=== PATIENT | female | born 1985 | race Hispanic/Latino ===

== ENCOUNTER 2016-10-08 14:58 | Emergency (ER) | payer MEDICAID ==
[2016-10-08 16:02] LABS: Basophils % (Auto) 0.6 % (0.0-1.8); Eosinophils % (Auto) 2.5 % (0.0-4.3); Hematocrit 33.3 % (30.3-42.9); Hemoglobin 10.6 gm/dl (10.1-14.3); Mean Corpuscular HGB Conc 32 % (30-34); Mean Corpuscular Volume 79 fl (79-97); Platelet Count 211 K/mm3 (140-440); Red Cell Distribution Width 17.3 % (13.2-15.2); White Blood Count 8.4 K/mm3 (4.5-11.0)
[2016-10-08 16:04] LABS: Mean Corpuscular Hemoglobin 25 pg (28-32)
[2016-10-08 16:22] LABS: Alanine Aminotransferase 8 units/L (7-56); Albumin 3.7 g/dL (3.9-5); Albumin/Globulin Ratio 0.9 %; Alkaline Phosphatase 109 units/L (35-129); Anion Gap 18 mmol/L; BUN/Creatinine Ratio 8.57; Bilirubin,Total < 0.20 mg/dL (0.1-1.2); Blood Urea Nitrogen 6 mg/dL (7-17); Carbon Dioxide 20 mmol/L (22-30); Chloride 105.2 mmol/L (98-107); Glucose 91 mg/dL (65-100); Lipase 17 units/L (13-60); Potassium 3.9 mmol/L (3.6-5.0); Sodium 139 mmol/L (137-145); Total Protein 7.7 g/dL (6.3-8.2)
[2016-10-08 16:32] LABS: Bilirubin,Urine NEG (Negative); Blood,Urine NEG (Negative); Ketones,Urine NEG (Negative); Leukocyte Esterase,Urine TR (Negative); Mucus,Urine FEW /HPF; Nitrite,Urine NEG (Negative); Protein,Urine <15 mg/dL mg/dL (Negative); Urobilinogen,Urine < 2.0 mg/dL (<2.0)
[2016-10-08] MEDS ORDERED: SUBLIMAZE IV ONE (21:29)
[2016-10-08] MEDS ORDERED: ZOFRAN IV ONE (21:29)
[2016-10-08] MEDS ORDERED: NACL ONE (21:40)
--- NOTE | 2016-10-08 21:40 | Emergency Department Report ---
HPI - General Chief Complaint: Abdominal Pain Time Seen by Provider: 10/08/16 21:06 - HPI HPI: Room 7 The patient is a 30-year-old female presenting with a chief complaint right- sided abdominal pain. The patient states she has had pain in the right upper quadrant/right costal margin for the past 2 days is constant and sharp in nature. Patient does admit to occasional pleuritic component which caused the pain radiated to her right back. Patient does admit to nausea vomiting but denies diarrhea. Patient denies any history of fever. The patient states she has a history of factor V Leiden and is not currently on anticoagulation. The patient currently gives her pain a score of 9/10 Location: [see above] Duration: 2 days Quality: Sharp Severity:9/10 Modifying factors: Inspiration causes pain to radiate Context: [see above] Mode of transportation: [not driving] ED Past Medical Hx - Past Medical History Hx CVA: Yes (x5) Hx Psychiatric Treatment: Yes (BIPOLAR / SCHIZOPHRENIA / PTSD) Hx Asthma: Yes Additional medical history: FACTOR 5 - Surgical History Hx Cholecystectomy: Yes Additional Surgical History: X 2. TUBAL LIGATION - Family History Family history: no significant - Social History Smoking Status: Current Every Day Smoker (1/2 pack per day) Substance Use Type: None (denies illicit drug use) - Medications Home Medications: Home Medications Medication Instructions Recorded Confirmed Last Taken Type Aspirin [Aspirin TAB] 325 mg PO ONCE 08/21/14 08/21/14 08/21/14 History Ibuprofen [Motrin 800 MG tab] 800 mg PO Q8H PRN #30 tablet 09/03/14 Unknown Rx Meclizine [Antivert] 25 mg PO TID PRN #20 tablet 09/03/14 Unknown Rx Ondansetron [Zofran Odt] 4 mg PO Q6H PRN #20 tab.rapdis 09/03/14 Unknown Rx oxyCODONE /ACETAMINOPHEN [Percocet 1 tab PO Q6HR PRN #10 tablet 09/03/14 Unknown Rx 5/325] Azithromycin [Zithromax Z-ELOISE] 0 mg PO DAILY #6 tab 10/08/16 Unknown Rx HYDROcodone/APAP 5-325 [[place] 1 - 2 each PO Q6HR PRN #14 tablet 10/08/16 Unknown Rx 5/325] Ibuprofen [Motrin 800 MG tab] 800 mg PO Q8HR PRN #20 tablet 10/08/16 Unknown Rx ED Review of Systems ROS: Stated complaint: RT SIDE PAIN Other details as noted in HPI Comment: All other systems reviewed and negative Constitutional: denies: chills, fever Eyes: denies: eye pain, eye discharge, vision change ENT: denies: ear pain, throat pain Respiratory: denies: cough, shortness of breath, wheezing Cardiovascular: denies: chest pain, palpitations Endocrine: no symptoms reported Gastrointestinal: abdominal pain, nausea, vomiting Genitourinary: denies: urgency, dysuria, discharge Musculoskeletal: back pain Skin: denies: rash, lesions Neurological: denies: headache, weakness, paresthesias Psychiatric: denies: anxiety, depression Hematological/Lymphatic: denies: easy bleeding, easy bruising Physical Exam - Physical Exam Vital Signs: Vital Signs 10/08/16 15:34 Temperature 98.7 F Pulse Rate 98 H Respiratory 18 Rate Blood Pressure 127/74 O2 Sat by Pulse 99 Oximetry Physical Exam: GENERAL: The patient is well-developed well-nourished female looking older than stated age sitting on stretcher not appearing to be in acute distress. [] HEENT: Normocephalic. Atraumatic. Extraocular motions are intact. Patient has moist mucous membranes. NECK: Supple. Trachea midline CHEST/LUNGS: Clear to auscultation. There is no respiratory distress noted. HEART/CARDIOVASCULAR: Regular. There is no tachycardia. There is no gallop rub or murmur. ABDOMEN: Abdomen is soft, with tenderness to palpation in the right upper quadrant. Elsewhere the abdomen is soft and nontender. There is no rebound or guarding. Patient has normal bowel sounds. There is no abdominal distention. SKIN: There is no rash. There is no edema. There is no diaphoresis. NEURO: The patient is awake, alert, and oriented. The patient is cooperative. The patient has normal speech MUSCULOSKELETAL: There is no mild right CVA tenderness. There is no evidence of acute injury. ED Course Vital Signs 10/08/16 15:34 Temperature 98.7 F Pulse Rate 98 H Respiratory 18 Rate Blood Pressure 127/74 O2 Sat by Pulse 99 Oximetry ED Medical Decision Making - Lab Data Result diagrams: 10/08/16 15:50 10/08/16 15:50 Laboratory Tests 0610/08/16 10/08/16 15:50 15:50 15:50 WBC 8.4 RBC 4.20 Hgb 10.6 Hct 33.3 MCV 79 MCH 25 L MCHC 32 RDW 17.3 H Plt Count 211 Lymph % (Auto) 26.7 [place] % (Auto) 9.4 H Eos % (Auto) 2.5 Baso % (Auto) 0.6 Lymph # 2.3 [place] # 0.8 Eos # 0.2 Baso # 0.0 Seg Neutrophils % 60.8 Seg Neutrophils # 5.1 Sodium 139 Potassium 3.9 Chloride 105.2 Carbon Dioxide 20 L Anion Gap 18 BUN 6 L Creatinine 0.7 Estimated GFR > 60 BUN/Creatinine Ratio 8.57 Glucose 91 Calcium 9.0 Total Bilirubin < 0.20 AST 10 ALT 8 Alkaline Phosphatase 109 Total Protein 7.7 Albumin 3.7 L Albumin/Globulin Ratio 0.9 Lipase 17 HCG, Qual Negative Urine Color Urine Turbidity Urine pH Ur Specific [place] Urine Protein Urine Glucose (UA) Urine Ketones Urine Blood Urine Nitrite Urine Bilirubin Urine Urobilinogen Ur Leukocyte Esterase Urine WBC (Auto) Urine RBC (Auto) U Epithel Cells (Auto) Urine Mucus 10/08/16 16:10 WBC RBC Hgb Hct MCV MCH MCHC RDW Plt Count Lymph % (Auto) [place] % (Auto) Eos % (Auto) Baso % (Auto) Lymph # [place] # Eos # Baso # Seg Neutrophils % Seg Neutrophils # Sodium Potassium Chloride Carbon Dioxide Anion Gap BUN Creatinine Estimated GFR BUN/Creatinine Ratio Glucose Calcium Total Bilirubin AST ALT Alkaline Phosphatase Total Protein Albumin Albumin/Globulin Ratio Lipase HCG, Qual Urine Color Yellow Urine Turbidity Clear Urine pH 6.0 Ur Specific [place] 1.010 Urine Protein <15 mg/dl Urine Glucose (UA) Neg Urine Ketones Neg Urine Blood Neg Urine Nitrite Neg Urine Bilirubin Neg Urine Urobilinogen < 2.0 Ur Leukocyte Esterase Tr Urine WBC (Auto) 3.0 Urine RBC (Auto) 3.0 U Epithel Cells (Auto) < 1.0 Urine Mucus Few - Radiology Data Radiology results: report reviewed (CT abdomen and pelvis, CT chest), image reviewed (CT abdomen and pelvis, CT chest) CT chest (read by radiologist)-no evidence of pulmonary loose. Nonspecific groundglass densities are seen in both lungs. No dense consolidations are seen. I cannot exclude an interstitial infiltrates or atelectasis. Line CT abdomen and pelvis (read by radiologist) (-no acute intra-abdominal process. Normal appendix - Differential Diagnosis PE, renal colic, pyelonephritis Critical care attestation.: If time is entered above; I have spent that time in minutes in the direct care of this critically ill patient, excluding procedure time. ED Disposition Clinical Impression: Pleurisy, Acute bronchitis Disposition: TO HOME OR SELFCARE Is pt being admited?: No Does the pt Need Aspirin: No Condition: Stable Instructions: Abdominal Pain (ED), Acute Bronchitis (ED) Additional Instructions: Return to the emergency department immediately should you develop worsening symptoms, fever, inability to tolerate food or liquid or any other concerns. Prescriptions: Azithromycin [Zithromax Z-ELOISE] 0 mg PO DAILY #6 tab HYDROcodone/APAP 5-325 [[place] 5/325] 1 - 2 each PO Q6HR PRN #14 tablet PRN Reason: Pain Ibuprofen [Motrin 800 MG tab] 800 mg PO Q8HR PRN #20 tablet PRN Reason: Pain Referrals: PRIMARY CAREMD [Primary Care Provider] - 3-5 Days ISHA PATEL MD, PHD [Staff Physician] - 3-5 Days (Dr. Patel is a primary physician. Please follow up with him if you do not already have a primary doctor) RADHA WILKERSON MD [Staff Physician] - 3-5 Days (Dr. Wilkerson is a telephone recorder. Please follow up with him for further evaluation) Time of Disposition: 23:16
--- NOTE | 2016-10-08 22:52 | Cat Scan Report ---
FINAL REPORT PROCEDURE: CT ANGIO CHEST and contrast-enhanced CT scan abdomen and pelvis TECHNIQUE: Computerized tomographic angiography of the chest was performed during the IV injection of iodinated nonionic contrast including image processing. The image data was postprocessed using 2-dimensional multiplanar reformatted (MPR) and 3-dimensional (MIP and/or volume rendered) techniques. Additional contrast-enhanced CT scan of the abdomen and pelvis was obtained during the injection of IV contrast. HISTORY: right costal pain with pleurisy. Factor V Leiden. Evaluate pulmonary embolus COMPARISON: No prior studies are available for comparison. FINDINGS: Pulmonary outflow tract, right and left main pulmonary arteries and their proximal branches: Clear, no filling defects seen to suggest pulmonary embolus. Pericardium: No evidence of pericardial effusion. Thoracic aorta: No evidence of aneurysmal dilatation or dissection. Coronary arteries: Are unremarkable. Mediastinum and hilar regions: Nonspecific subcentimeter lymph nodes are visualized. No pathologically enlarged lymph nodes or masses are identified. There is a small amount of soft tissue dense material in the anterior mediastinum conforming to the contours of the anterior mediastinum suggesting residual thymic tissue. Lung Smalls: Nonspecific ground-glass densities scattered in both lungs. There are few linear bands of atelectasis in the lung bases and also in the right middle lobe. No dense consolidations or effusions are seen. Upper abdomen: The gallbladder is surgically absent. The liver, the adrenal glands, the pancreas and the spleen are unremarkable. Kidneys ureters and urinary bladder are unremarkable. Abdominal aorta appears normal. No evidence of aneurysm. Nonspecific subcentimeter lymph nodes are scattered in the retroperitoneum. These do not appear to be pathologically enlarged. No bowel abnormalities are seen. No evidence of bowel obstruction ascites or free intraperitoneal gas. Normal-appearing appendix is seen in the right lower quadrant. Gas densities seen in the vagina. A tampon appears to be present. Uterus and adnexa are unremarkable. No acute bony abnormalities are identified. There is an asymmetric disc protrusion or herniation to the left at L5-S1. This appears to be resting on and minimally compressing the left S1 nerve root. Degenerative changes visualized in both SI joints. IMPRESSION: No evidence of pulmonary embolus. Nonspecific ground-glass densities are seen in both lungs as described. No dense consolidations are seen. I cannot exclude an interstitial infiltrate or atelectasis. Prior cholecystectomy. Asymmetric disc protrusion or herniation to the left at the L5-S1 level as described above.
--- NOTE | 2016-10-08 22:56 | Cat Scan Report ---
FINAL REPORT EXAM: CT ABDOMEN PELVIS W CON HISTORY: sharp right-sided abd pain radiating to back TECHNIQUE: CT images are acquired through the Abdomen and Pelvis arterial and delayed venous phases following intravenous administration of contrast. Transaxial, coronal and sagittal reformations are provided. PRIORS: None FINDINGS: Partially visualized intrathoracic contents are remarkable for bibasilar atelectasis. Please see CT chest of the same date. Cholecystectomy. The liver, pancreas, spleen, and adrenal glands are normal. Kidneys show no worrisome lesions, hydronephrosis, or calculi. Urinary bladder is without intraluminal stone. Small and large bowel are normal in caliber. Appendix is normal. No free air, free fluid, or lymphadenopathy identified. Aorta is normal in course and caliber. Anteverted uterus. No significant free fluid in the pelvis. Vaginal tampon is noted. Superficial soft tissues are unremarkable. No acute or aggressive appearing skeletal findings. Osteitis condensans ilii. IMPRESSION: No acute intra-abdominal process. Normal appendix.
[2016-10-08 23:46] VITALS: BP 110/72
== END 2016-10-08 23:46 | disposition home or self-care (01) ==
LOC: ED 14:58
DX: R09.1 Pleurisy (principal); J20.9 Acute bronchitis, unspecified; F31.9 Bipolar disorder, unspecified; F20.9 Schizophrenia, unspecified; F17.200 Nicotine dependence, unspecified, uncomplicated
CPT/HCPCS: 36415; 71275; 74177; 80053; 81001; 83690; 84703; 85025; 96374; 96375; 99284; J2405; J3010; Q9967

== ENCOUNTER 2017-07-15 11:27 | Emergency (ER) | payer MEDICAID ==
[2017-07-15 15:48] VITALS: BP 117/67
[2017-07-15] MEDS ORDERED: NORCO 5/325 PO ONE (16:10)
--- NOTE | 2017-07-15 16:13 | Emergency Department Report ---
Blank Doc - Documentation Documentation: Patient is a 31-year-old female who is presenting with left calf pain. Patient has factor V Leiden syndrome and is supposed to be on Lovenox but is not taking this medication. Patient states the pain has been present for 2 days. Patient also states in her inner left thigh she has some areas of redness that she believes a small staph infection. X Patient will undergo ultrasound of the leg to rule out DVT.
== END 2017-07-15 20:34 | disposition left against medical advice (07) ==
LOC: ED 11:27
DX: M79.605 Pain in left leg (principal)

== ENCOUNTER 2017-08-10 16:18 | Inpatient (IN) | payer MEDICAID ==
--- NOTE | 2017-08-10 17:57 | Emergency Department Report ---
HPI - General Chief Complaint: Altered Mental Status Time Seen by Provider: 08/10/17 17:41 - HPI HPI: Room 4 The patient is a 31-year-old female presenting with chief complaint of memory loss and right-sided numbness. The patient was brought in by EMS. The patient states she does not remember why EMS was called initially. EMS stated the patient began complaining of not feeling well, right arm numbness and recent short-term memory loss. During the interview the patient was asked what is bothering her and she required she has a headache and feels "full headed." Upon further probing the patient admitted to right hand and right forearm numbness. The patient has a history of leukemia and receives chemotherapy but states she does not remember the last time she received it Location: [See above] Duration: Unknown Quality: Headache, numbness Severity: Moderate Modifying factors: [see above] Context: [see above] Mode of transportation: [not driving] ED Past Medical Hx - Past Medical History Hx CVA: Yes (x5) Hx of Cancer: Yes (LEUKEMIA 2018) Hx Psychiatric Treatment: Yes (BIPOLAR / SCHIZOPHRENIA / PTSD) Hx Asthma: Yes Additional medical history: Factor V Leiden, Leukemia, DVT - Surgical History Hx Cholecystectomy: Yes Additional Surgical History: X 2. TUBAL LIGATION - Family History Family history: no significant - Social History Smoking Status: Current Every Day Smoker (1/2 pack per day) Substance Use Type: None (denies illicit drug use) - Medications Home Medications: Home Medications Medication Instructions Recorded Confirmed Last Taken Type FLUoxetine HCL [PROzac] 40 mg PO QAM 08/10/17 08/10/17 Unknown History Perphenazine [Trilafon] 16 mg PO DAILY@209908/10/17 08/10/17 Unknown History Topiramate [Topamax] 200 mg PO QAM 08/10/17 08/10/17 Unknown History Trazodone HCl 300 mg PO DAILY@209908/10/17 08/10/17 Unknown History Warfarin [Coumadin] 5 mg PO DAILY@169908/10/17 08/10/17 Unknown History ED Review of Systems ROS: Stated complaint: MEMORY LOSS Other details as noted in HPI Neurological: headache, numbness, other (memory loss) Physical Exam - Physical Exam Vital Signs: Vital Signs 08/10/17 16:20 Temperature 98.0 F Pulse Rate 71 Blood Pressure 117/72 O2 Sat by Pulse 98 Oximetry Physical Exam: GENERAL: The patient is well-developed well-nourished female sitting on stretcher not appearing to be in acute distress. [] HEENT: Normocephalic. Atraumatic. Extraocular motions are intact. Patient has moist mucous membranes. NECK: Supple. Trachea midline CHEST/LUNGS: Clear to auscultation. There is no respiratory distress noted. HEART/CARDIOVASCULAR: Regular. There is no tachycardia. There is no gallop rub or murmur. ABDOMEN: Abdomen is soft, nontender. Patient has normal bowel sounds. There is no abdominal distention. SKIN: There is no rash. There is no edema. There is no diaphoresis. NEURO: The patient is awake, alert, and oriented. The patient is cooperative. Cranial nerves II through XII grossly intact with exception of decreased sensation of the right V1 and V2 distribution. The patient has normal speech. No drift. Slightly decreased sensation to the right hand and forearm. Normal sensation bilateral lower extremities MUSCULOSKELETAL: There is no evidence of acute injury. ED Course Vital Signs 08/10/17 16:20 Temperature 98.0 F Pulse Rate 71 Blood Pressure 117/72 O2 Sat by Pulse 98 Oximetry ED Medical Decision Making - Lab Data Result diagrams: 08/10/17 17:42 08/10/17 17:42 Laboratory Tests 08/10/17 08/10/17 08/10/17 17:42 17:42 17:46 WBC 5.9 RBC 4.27 Hgb 7.2 L Hct 25.7 L MCV 60 L MCH 17 L MCHC 28 L RDW 19.1 H Plt Count 219 Lymph % (Auto) 29.5 [place] % (Auto) 8.8 H Eos % (Auto) 1.3 Baso % (Auto) 0.6 Lymph # 1.7 [place] # 0.5 Eos # 0.1 Baso # 0.0 Seg Neutrophils % 59.8 Seg Neutrophils # 3.5 PT 14.4 INR 1.06 APTT 26.3 Sodium 140 Potassium 4.0 Chloride 101.4 Carbon Dioxide 26 Anion Gap 17 BUN 5 L Creatinine 0.6 L Estimated GFR > 60 BUN/Creatinine Ratio 8 Glucose 93 Calcium 8.8 Total Bilirubin Direct Bilirubin Indirect Bilirubin AST ALT Alkaline Phosphatase Total Creatine Kinase CK-MB (CK-2) CK-MB (CK-2) Rel Index Troponin T Total Protein Albumin Albumin/Globulin Ratio TSH Free T4 08/10/17 08/10/17 17:46 17:46 WBC RBC Hgb Hct MCV MCH MCHC RDW Plt Count Lymph % (Auto) [place] % (Auto) Eos % (Auto) Baso % (Auto) Lymph # [place] # Eos # Baso # Seg Neutrophils % Seg Neutrophils # PT INR APTT Sodium Potassium Chloride Carbon Dioxide Anion Gap BUN Creatinine Estimated GFR BUN/Creatinine Ratio Glucose Calcium Total Bilirubin < 0.20 Direct Bilirubin < 0.2 Indirect Bilirubin 0.0 AST 10 ALT 6 L Alkaline Phosphatase 84 Total Creatine Kinase 31 CK-MB (CK-2) < 1.0 CK-MB (CK-2) Rel Index 3.2 Troponin T < 0.010 Total Protein 7.0 Albumin 4.0 Albumin/Globulin Ratio 1.3 TSH 1.230 Free T4 0.97 - EKG Data -: EKG Interpreted by Me EKG shows normal: sinus rhythm Rate: normal - EKG Data When compared to previous EKG there are: previous EKG unavailable Interpretation: nonspecific ST-T wave nancy (T-wave inversion in lead 3, aVF, V3) - Radiology Data Radiology results: report reviewed (CT head), image reviewed (CT head) [facility] [address] [place] [address] Cat Scan Report Signed Patient: UGO GOMEZ MR#: [id number] : 1985 Acct:[id number] Age/Sex: 31 / F ADM Date: 08/10/17 Loc: ED Attending Dr: Ordering Physician: YVAN RODRIGUEZ MD Date of Service: 08/10/17 Procedure(s): CT head/brain wo con Accession Number(s): [id number] cc: YVAN RODRIGUEZ MD FINAL REPORT PROCEDURE: CT HEAD/BRAIN WO CON TECHNIQUE: Computerized tomography of the head was performed without contrast material. HISTORY: memory loss, right-sided numbness COMPARISON: No prior studies are available for comparison. FINDINGS: Skull and scalp: Normal. Paranasal sinuses: Normal. Ventricles and subarachnoid spaces: Normal. Cerebrum: No evidence of hemorrhage, acute infarction or mass . Cerebellum and brainstem: No evidence of hemorrhage, acute infarction or mass. Vasculature: Normal. Comments: None. IMPRESSION: Normal Examination Transcribed By: CO Dictated By: RUTH ELDRIDGE MD Electronically Authenticated By: RUTH ELDRIDGE MD Signed Date/Time: 08/10/172109 DD/ 09 TD/TT: 08/10/172109 - Differential Diagnosis CVA, ICH, intercranial mass, brain metastasis Critical care attestation.: If time is entered above; I have spent that time in minutes in the direct care of this critically ill patient, excluding procedure time. ED Disposition Clinical Impression: Numbness on right side, Memory loss Disposition: OP ADMIT IP TO THIS HOSP Is pt being admited?: Yes Does the pt Need Aspirin: Yes Condition: Fair Referrals: PRIMARY CARE, [Primary Care Provider] - 3-5 Days Time of Disposition: 21:28 (hospitalist paged (Dr. Elaine Licona))
[2017-08-10 17:58] LABS: Basophils % (Auto) 0.6 % (0.0-1.8); Eosinophils # (Auto) 0.1 K/mm3 (0.0-0.4); Eosinophils % (Auto) 1.3 % (0.0-4.3); Hemoglobin 7.2 gm/dl (10.1-14.3); Lymphocytes # (Auto) 1.7 K/mm3 (1.2-5.4); Lymphocytes % (Auto) 29.5 % (13.4-35.0); Mean Corpuscular HGB Conc 28 % (30-34); Monocytes # (Auto) 0.5 K/mm3 (0.0-0.8); Monocytes % (Auto) 8.8 % (0.0-7.3); Platelet Count 219 K/mm3 (140-440); Red Blood Count 4.27 M/mm3 (3.65-5.03); Red Cell Distribution Width 19.1 % (13.2-15.2)
[2017-08-10 17:59] LABS: Hematocrit 25.7 % (30.3-42.9); Mean Corpuscular Hemoglobin 17 pg (28-32); Mean Corpuscular Volume 60 fl (79-97)
[2017-08-10 18:07] LABS: INR 1.06 (0.87-1.13); Partial Thromboplastin Time 26.3 Sec. (24.2-36.6)
[2017-08-10 18:10] LABS: BUN/Creatinine Ratio 8; Blood Urea Nitrogen 5 mg/dL (7-17); Calcium 8.8 mg/dL (8.4-10.2); Hemolysis Index 2
[2017-08-10 18:16] LABS: Alanine Aminotransferase 6 units/L (7-56)
[2017-08-10 18:26] LABS: Free T4 (Free Thyroxine) 0.97 ng/dL (0.76-1.46)
[2017-08-10 18:53] LABS: Bilirubin,Direct < 0.2 mg/dL (0-0.2)
[2017-08-10 18:54] LABS: Creatine Kinase MB < 1.0 ng/mL (0.0-4.0)
--- NOTE | 2017-08-10 21:16 | Cat Scan Report ---
FINAL REPORT PROCEDURE: CT HEAD/BRAIN WO CON TECHNIQUE: Computerized tomography of the head was performed without contrast material. HISTORY: memory loss, right-sided numbness COMPARISON: No prior studies are available for comparison. FINDINGS: Skull and scalp: Normal. Paranasal sinuses: Normal. Ventricles and subarachnoid spaces: Normal. Cerebrum: No evidence of hemorrhage, acute infarction or mass . Cerebellum and brainstem: No evidence of hemorrhage, acute infarction or mass. Vasculature: Normal. Comments: None. IMPRESSION: Normal Examination
[2017-08-10] MEDS ORDERED: DULCOLAX PR PRN (22:30)
[2017-08-10] MEDS ORDERED: TYLENOL PO PRN (22:30)
[2017-08-10] MEDS ORDERED: ZOFRAN IV PRN (22:30)
[2017-08-10] MEDS ORDERED: MILK OF MAGNESIA PO PRN (22:30)
[2017-08-10] MEDS ORDERED: SODIUM CHLORIDE FLUSH SYRINGE 10 ML IV PRN (22:30)
--- NOTE | 2017-08-10 22:43 | History and Physical Report ---
History of Present Illness Date of examination: 08/10/17 History of present illness: 31 -year-old woman with a history of bipolar, schizophrenia, CVA, TIAs, factor V Leiden deficiency was sent to the emergency room for evaluation of memory loss , and right-sided numbness. Patient does not recall why she is here in the hospital. She stated her right leg feels numb but that is because she has been sitting on it Review of systems Constitutional: no weight loss, chills Ears, eyes, nose, mouth and throat: no nasal congestion, no nasal discharge, no sinus pressure, no vision change, no red eye. Neck: No neck pain or rigidity. Cardiovascular: no chest pain, palpitations Respiratory: No cough, shortness of breath Gastrointestinal: no abdominal pain, hematochezia Genitourinary : no dysuria, frequency , no hematuria Musculoskeletal: no joint swelling or muscle ache Integumentary: no rash, no pruritis Neurological: no numbness, no focal weakness Endocrine: no cold or heat intolerance, no polyuria or polydipsia Hematologic/Lymphatic: no easy bruising, no easy bleeding, no gland swelling Allergic/Immunologic: no urticaria, no angioedema. PAST MEDICAL HISTORY:bipolar, schizophrenia, CVA, TIAs, factor V Leiden deficiency PAST SURGICAL HISTORY: Cholecystectomy, 2 SOCIAL HISTORY: Smokes half pack a day, no alcohol or drugs FAMILY HISTORY: Hypertension Medications and Allergies Allergies Allergy/AdvReac Type Severity Reaction Status Date / Time cefaclor [From Ceclor] Allergy Hives Verified 10/08/16 15:32 olanzapine [From Zyprexa] Allergy Swelling Verified 10/08/16 15:32 Home Medications Medication Instructions Recorded Confirmed Last Taken Type FLUoxetine HCL [PROzac] 40 mg PO QAM 08/10/17 08/10/17 Unknown History Perphenazine [Trilafon] 16 mg PO DAILY@209908/10/17 08/10/17 Unknown History Topiramate [Topamax] 200 mg PO QAM 08/10/17 08/10/17 Unknown History Trazodone HCl 300 mg PO DAILY@209908/10/17 08/10/17 Unknown History Warfarin [Coumadin] 5 mg PO DAILY@1700 08/10/17 08/10/17 Unknown History Active Meds: Active Medications Acetaminophen (Tylenol) 650 mg PO Q4H PRN PRN Reason: Pain, Mild (1-3) Aspirin (Aspirin) 325 mg PO QDAY KRYSTEN Bisacodyl (Dulcolax) 10 mg HI QDAY PRN PRN Reason: Constipation Sodium Chloride (Nacl 0.9% 1000 Ml) 1,000 mls @ 100 mls/hr IV DIRECT KRYSTEN Magnesium Hydroxide (Milk Of Magnesia) 30 ml PO Q4H PRN PRN Reason: Constipation Ondansetron HCl (Zofran) 4 mg IV Q8H PRN PRN Reason: N/V unrelieved by Reglan Sodium Chloride (Sodium Chloride Flush Syringe 10 Ml) 10 ml INJ PRN PRN PRN Reason: LINE FLUSH Exam - Physical Exam Narrative exam: Gen. appearance: Patient lying in bed, no apparent distress HEENT: Normocephalic, atraumatic, pupils equally round and reactive to light, extraocular movement intact, and no sclericterus,. No JVD or thyromegaly or nodule,neck supple, no carotid bruit ,mucous membranes moist, no exudate or erythema Heart: S1, S2, regular rate and rhythm Lungs: Clear to auscultation bilaterally, breathing comfortable Abdomen: Positive bowel sounds, nontender, nondistended, no organomegaly Extremity: No edema, cyanosis, clubbing Skin: No rash, nodules, warm, dry Neuro: Oriented 3, cranial nerves II-12 intact, speech is fluent, motor and sensory intact - Constitutional Vitals: Temp Pulse Resp BP Pulse Ox 98.2 F 71 10 L 122/44 100 08/10/17 19:11 08/10/17 19:11 08/10/17 19:16 08/10/17 19:11 08/10/17 19:16 Results - Labs CBC & Chem 7: 08/10/17 17:42 08/10/17 17:42 Labs: Abnormal lab results 08/10/17 08/10/17 08/10/17 Range/Units 17:42 17:42 17:46 Hgb 7.2 L (10.1-14.3) gm/dl Hct 25.7 L (30.3-42.9) % MCV 60 L (79-97) fl MCH 17 L (28-32) pg MCHC 28 L (30-34) % RDW 19.1 H (13.2-15.2) % [place] % (Auto) 8.8 H (0.0-7.3) % BUN 5 L (7-17) mg/dL Creatinine 0.6 L (0.7-1.2) mg/dL ALT 6 L (7-56) units/L - Imaging and Cardiology EKG: image reviewed CT Scan - head: report reviewed Assessment and Plan Assessment TIA versus CVA Anemia bipolar schizophrenia CVA?TIAs factor V Leiden deficiency Plan Admit medicine Doing yard checks, swallows screen Obtain MRI of the head, carotid Doppler, echo Consult neurology, physical and ADDITIONAL therapy Check iron, TIBC, ferritin, PT/INR DVT prophylaxis Continue appropriate outpatient medications
[2017-08-10] MEDS ORDERED: NACL 0.9% 1000 ML 1,000 ML IV SCH (23:00)
[2017-08-10 23:56] LABS: Creatine Kinase MB < 1.0 ng/mL (0.0-4.0)
[2017-08-11 01:07] LABS: INR 1.11 (0.87-1.13)
[2017-08-11 01:08] LABS: Partial Thromboplastin Time 27.7 Sec. (24.2-36.6)
[2017-08-11 07:01] LABS: Chol/HDL Ratio 4.48 %
[2017-08-11 07:05] LABS: Creatine Kinase MB < 1.0 ng/mL (0.0-4.0)
[2017-08-11] MEDS ORDERED: NON-FORMULARY (Fluoxetine Hcl [Prozac] 40 MG) PO SCH (10:00)
[2017-08-11] MEDS ORDERED: PNEUMOVAX 23 IM ONE (12:00)
--- NOTE | 2017-08-11 12:03 | Magnetic Resonance Report ---
MRI OF THE BRAIN WITHOUT CONTRAST: HISTORY: Stroke PROCEDURE: Multiplanar, multisequence MR imaging of the brain without IV contrast was performed. FINDINGS: Compared to the CT head dated 08/10/17. Diffusion images demonstrate 2 questionable tiny foci of diffusion restriction. There is one tiny focus of diffusion restriction in the medial left occipital lobe on the diffusion image 19. There is a second tiny area of diffusion restriction in the left parieto-occipital white matter on diffusion image 28. The remaining brain parenchyma demonstrates normal signal on all sequences. There is no evidence for hemorrhage, mass or extra-axial fluid collection. No chronic infarct. The midline structures are central. The basal cisterns are patent. Normal ventricular size. The orbital cavities and sella turcica demonstrate no abnormality. The visualized paranasal sinuses and mastoid air cells are well aerated. IMPRESSION: There are 2 questionable tiny foci of subacute ischemia in the medial left occipital lobe and left parieto-occipital subcortical white matter as outlined above. Please correlate with the patient's clinical presentation.
[2017-08-11] MEDS: ASPIRIN PO SCH (13:05)
[2017-08-11] MEDS: TOPAMAX PO SCH (13:05)
[2017-08-11] MEDS: PROzac PO SCH (13:06)
[2017-08-11] MEDS: HABITROL TD SCH (13:07)
[2017-08-11] MEDS ORDERED: COUMADIN PO SCH ×2 (17:00)
--- NOTE | 2017-08-11 18:32 | Consultation ---
History of Present Illness Consult date: 08/11/17 Requesting physician: FABBY CANNON Reason for Consult: numbness right side with confusion and headache Chief complaint: numbness right side with confusion and headache History of present illness: This 31-year-old left-handed white female per ER physician yesterday: "The patient is a 31-year-old female presenting with chief complaint of memory loss and right-sided numbness. The patient was brought in by EMS. The patient states she does not remember why EMS was called initially. EMS stated the patient began complaining of not feeling well, right arm numbness and recent short-term memory loss. During the interview the patient was asked what is bothering her and she required she has a headache and feels "full headed." Upon further probing the patient admitted to right hand and right forearm numbness. The patient has a history of leukemia and receives chemotherapy but states she does not remember the last time she received it." She remembers being in the emergency room and having some numbness of her right arm and leg and she does not think her face was involved though later she felt prickling feeling in the face as if it was waking up. Her boyfriend states she called him repeatedly from the emergency room expressing fear and repeatedly asking about her kids and did mention headache. She states all of her symptoms went away while still in the emergency room except for right frontal headache which is 3/10 and less than her typical migraine headache with a little photophobia. She states she's had some nausea overall for 3 weeks. She had resumption of chemotherapy intravenously last week for leukemia which has gotten worse. 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 This has been from [place] cancer specialist Dr. Klein. Mirtazapine in combination with the trazodone was making her loopy at 45 mg a day and she has now been off it for a month anyway because of trouble getting insurance to cover both. She takes fluoxetine 40 mg in the morning and topiramate 200 mg in the morning (the latter for her migraines for the past 2 years). She takes Trilafon 2 of an 8 mg size at bedtime. She had not needed any chemotherapy for several years prior to this. She has noted low blood pressure recently in the past week at least and has had some lightheadedness for 2 weeks. Trazodone was increased from 150 mg at bedtime to 300 mg at bedtime because of poor sleep in the past month. She had an episode at age 18 of numbness on the right side and was told she had a stroke on MRI scan. Later she was diagnosed with factor V Leiden 5 deficiency or mutation. She was put on 81 mg aspirin twice a day at the time of the stroke but no statin. She is not on a statin currently as an outpatient. She states her blood pressure lately has been 99/66 but used to be 142/96. MRI is negative on diffusion, GRE and FLAIR. Duplex scan is normal for the carotids and vertebrals. 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 denies: alcohol abuse (none), prescription drug abuse, IV drug use (marijuana 2 years ago, ecstasy at age 18, never IVDA) Family history: diabetes (son has hypoglycemia but not diabetes), hypertension ( paternal grandfather, father, paternal aunt, sister), stroke (paternal grandfather), other (no history of epilepsy) Medications and Allergies Allergies Allergy/AdvReac Type Severity Reaction Status Date / Time cefaclor [From Ceclor] Allergy Hives Verified 10/08/16 15:32 olanzapine [From Zyprexa] Allergy Swelling Verified 10/08/16 15:32 Home Medications Medication Instructions Recorded Confirmed Last Taken Type FLUoxetine HCL [PROzac] 40 mg PO QAM 08/10/17 08/10/17 Unknown History Perphenazine [Trilafon] 16 mg PO DAILY@209908/10/17 08/10/17 Unknown History Topiramate [Topamax] 200 mg PO QAM 08/10/17 08/10/17 Unknown History Trazodone HCl 300 mg PO DAILY@209908/10/17 08/10/17 Unknown History Warfarin [Coumadin] 5 mg PO DAILY@17008/10/17 08/10/17 Unknown History Active Meds: Active Medications Acetaminophen (Tylenol) 650 mg PO Q4H PRN PRN Reason: Pain, Mild (1-3) Aspirin (Aspirin) 325 mg PO QDAY [facility] Last Admin: 08/11/17 13:05 Dose: 325 mg Bisacodyl (Dulcolax) 10 mg FL QDAY PRN PRN Reason: Constipation Fluoxetine HCl (Prozac) 40 mg PO QAM [facility] Last Admin: 08/11/17 13:06 Dose: 40 mg Sodium Chloride (Nacl 0.9% 1000 Ml) 1,000 mls @ 100 mls/hr IV DIRECT [facility] Magnesium Hydroxide (Milk Of Magnesia) 30 ml PO Q4H PRN PRN Reason: Constipation Nicotine (Habitrol) 14 mg TD QDAY [facility] Last Admin: 08/11/17 13:07 Dose: Not Given Ondansetron HCl (Zofran) 4 mg IV Q8H PRN PRN Reason: N/V unrelieved by Reglan Perphenazine (Trilafon) 16 mg PO DAILY@2100 [facility] Sodium Chloride (Sodium Chloride Flush Syringe 10 Ml) 10 ml IV PRN PRN PRN Reason: LINE FLUSH Topiramate (Topamax) 200 mg PO [facility] Last Admin: 08/11/17 13:05 Dose: 200 mg Trazodone HCl (Desyrel) 225 mg PO QHS [facility] Warfarin Sodium (Coumadin Pharmacy To Dose) 1 each PO PKCONSULT [facility]; Protocol Warfarin Sodium (Coumadin) 7.5 mg PO DAILY@1700 [facility] Last Admin: 08/11/17 17:48 Dose: 7.5 mg Review of Systems All systems: negative (migraines in the right frontal region with nausea and photophobia and wavy lines during them, infrequent. Lightheadedness only in the past 2 weeks which seems to be orthostatic, some snoring but no pauses, sometimes not dozing, some short-term memory difficulties only since yesterday. Intermittent numbness bilaterally when , feet go to sleep at times which goes away after walking a while.) Physical Examination - Vital Signs Vital Signs: Vital Signs Temp Pulse BP Pulse Ox 98.0 F 71 117/72 98 08/10/17 16:20 08/10/17 16:20 08/10/17 16:20 08/10/17 16:20 - Physical Exam Narrative exam: General Appearance: well developed but obese (per BMI) early 30s white female in NAD, accompanied by her boyfriend who is the father of her 2 children. HEENT: atraumatic, normocephalic; no bruits, 2+ Jose without soreness or induration or enlargement, sclerae nonicteric. Oropharynx pink and moist. No TMJ click, slight right TMJ and right maxillary sinus soreness to pressure or percussion. Neck: supple, no bruits. Heart: no murmur or extra sounds. Extremities: no clubbing, cyanosis or edema. 2+ dorsalis pedis pulses bilaterally. Neurologic Exam: Mental Status: Awake, alert, oriented X 3, speech is clear, names pen and tip of pen, and abstracts well. 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 Cranial Nerves: judge full, no papilledema, SVPs present, PERRLA, EOMs full without nystagmus or diplopia, facial sensation intact to light touch but decreased right V2 to pinprick, no facial weakness, Flores is midline, palate rises symmetrically to phonation OR gags are positive, shoulder shrug is 5 X 2, tongue protrudes midline. Cerebellar: finger to nose and tandem are normal. Sensory: intact to light touch, pinprick, and vibrations. Double simultaneous stimulation is intact. Motor Exam Upper Extremities: no drift or pronation, Deepak intact. Follow Up Rep are 5 X 2, tone is normal. No atrophy or fasciculations are noted visually. Motor Exam Lower Extremities: walks well on heels and toes but cannot hop on the right. Deepak intact. Tone is normal. No atrophy or fasciculations are noted visually. Reflexes: Palmomental and snout but jaw jerk is negative. Triceps are trace to 1, biceps and brachioradialis are trace bilaterally. Avery's is slightly positive right and negative left. Knee jerks are 2 and ankle jerks are 2+ bilaterally without clonus. Toes are downgoing right and more strongly downgoing to Babinski testing. Results - Laboratory Findings CBC and BMP: 08/10/17 17:42 08/10/17 17:42 Abnormal Lab Findings: Abnormal Labs 08/10/17 08/10/17 08/10/17 17:42 17:42 17:46 Hgb 7.2 L Hct 25.7 L MCV 60 L MCH 17 L MCHC 28 L RDW 19.1 H [place] % (Auto) 8.8 H BUN 5 L Creatinine 0.6 L ALT 6 L Total Creatine Kinase CK-MB (CK-2) Rel Index HDL Cholesterol 08/11/17 08/11/17 06:05 06:05 Hgb Hct MCV MCH MCHC RDW [place] % (Auto) BUN Creatinine ALT Total Creatine Kinase 20 L CK-MB (CK-2) Rel Index 5.0 H HDL Cholesterol 29 L Assessment and Plan Impression: 1. Transient global amnesia 2. Orthostatic hypotension 3. Common migraine, nonintractable 4. Leukemia 5. Factor V Leiden mutation Plan: 1. Discussed calf tensing maneuvers for orthostasis and will give her a printout of those instructions. 2. Ordered EEG which I will review later today. 3. Lowered trazodone to 225 mg qhs since it could be causing her orthostasis. 4. Texted Dr. Valentin to have him order and adjust warfarin. 5. Explained concept of TGA and that memory problems and headache can linger for a few days, and that TGA can sometimes recur in the same patient. 45 minutes spent today with this patient including review of 100s of MRI images. Thank you for an interesting consultation on this pleasant early 30s lady. Will sign off. He should not drive for at least 2 months but says she hasn't been driving for 2 years.
--- NOTE | 2017-08-11 18:42 | Progress Note ---
Assessment and Plan Assessment and plan: Migraine Orthostatic hypotension Anemia bipolar schizophrenia Transient Global Amnesia Migraine headache factor V Leiden deficiency CLL Plan Continue current management discussed with neurologist Dr. Andrea. Medication adjustments done. Imaging studies reviewed no acute pathology. Noted changes less likely CVA. We'll monitor for the next 24 hours, and if no recurrence of symptoms patient can be Discharged. Check iron, TIBC, ferritin, PT/INR Follows with [place] [facility] specialist Dr. Klein. DVT prophylaxis Continue appropriate outpatient medications History Interval history: Patient seen and examined with no acute distress resting comfortably. Denies any chest pain, nausea, vomiting at this time. Admitted with memory loss and right sided numbness and headache. Hospitalist Physical - Physical exam Narrative exam: VITAL SIGNS: Reviewed. GENERAL: The patient appeared well nourished and normally developed. Vital signs as documented. HEAD: No signs of head trauma. EYES: Pupils are equal. Extraocular motions intact. EARS: Hearing grossly intact. MOUTH: Oropharynx is normal. NECK: No adenopathy, no JVD. CHEST: Chest with clear breath sounds bilaterally. No wheezes, rales, or rhonchi. CARDIAC: Regular rate and rhythm. S1 and S2, without murmurs, gallops, or rubs. VASCULAR: No Edema. Peripheral pulses normal and equal in all extremities. ABDOMEN: Soft, without detectable tenderness. No sign of distention. No rebound or guarding, and no masses palpated. Bowel Sounds normal. MUSCULOSKELETAL: Good range of motion of all major joints. Extremities without clubbing, cyanosis or edema. NEUROLOGIC EXAM: Alert and oriented x 3. No focal sensory or strength deficits. Speech normal. Follows commands. PSYCHIATRIC: Mood normal. SKIN: No rash or lesions. - Constitutional Vitals: Temp Pulse Resp BP Pulse Ox 98.1 F 79 18 101/55 95 08/11/17 05:10 08/11/17 04:29 08/11/17 05:10 08/11/17 05:10 08/11/17 05:10 Results - Labs CBC & Chem 7: 08/10/17 17:42 08/10/17 17:42 Labs: Laboratory Last Values WBC 5.9 K/mm3 (4.5-11.0) 08/10/17 17:42 RBC 4.27 M/mm3 (3.65-5.03) 08/10/17 17:42 Hgb 7.2 gm/dl (10.1-14.3) L 08/10/17 17:42 Hct 25.7 % (30.3-42.9) L 08/10/17 17:42 MCV 60 fl (79-97) L 08/10/17 17:42 MCH 17 pg (28-32) L 08/10/17 17:42 MCHC 28 % (30-34) L 08/10/17 17:42 RDW 19.1 % (13.2-15.2) H 08/10/17 17:42 Plt Count 219 K/mm3 (140-440) 08/10/17 17:42 Lymph % (Auto) 29.5 % (13.4-35.0) 08/10/17 17:42 [place] % (Auto) 8.8 % (0.0-7.3) H 08/10/17 17:42 Eos % (Auto) 1.3 % (0.0-4.3) 08/10/17 17:42 Baso % (Auto) 0.6 % (0.0-1.8) 08/10/17 17:42 Lymph # 1.7 K/mm3 (1.2-5.4) 08/10/17 17:42 [place] # 0.5 K/mm3 (0.0-0.8) 08/10/17 17:42 Eos # 0.1 K/mm3 (0.0-0.4) 08/10/17 17:42 Baso # 0.0 K/mm3 (0.0-0.1) 08/10/17 17:42 Seg Neutrophils % 59.8 % (40.0-70.0) 08/10/17 17:42 Seg Neutrophils # 3.5 K/mm3 (1.8-7.7) 08/10/17 17:42 PT 14.9 Sec. (12.2-14.9) 08/11/17 00:44 INR 1.11 (0.87-1.13) 08/11/17 00:44 APTT 27.7 Sec. (24.2-36.6) 08/11/17 00:44 Sodium 140 mmol/L (137-145) 08/10/17 17:42 Potassium 4.0 mmol/L (3.6-5.0) 08/10/17 17:42 Chloride 101.4 mmol/L (98-107) 08/10/17 17:42 Carbon Dioxide 26 mmol/L (22-30) 08/10/17 17:42 Anion Gap 17 mmol/L 08/10/17 17:42 BUN 5 mg/dL (7-17) L 08/10/17 17:42 Creatinine 0.6 mg/dL (0.7-1.2) L 08/10/17 17:42 Estimated GFR > 60 ml/min 08/10/17 17:42 BUN/Creatinine Ratio 8 % 08/10/17 17:42 Glucose 93 mg/dL (65-100) 08/10/17 17:42 POC Glucose 92 (70-105) 08/11/17 00:31 Calcium 8.8 mg/dL (8.4-10.2) 08/10/17 17:42 Total Bilirubin < 0.20 mg/dL (0.1-1.2) 08/10/17 17:46 Direct Bilirubin < 0.2 mg/dL (0-0.2) 08/10/17 17:46 Indirect Bilirubin 0.0 mg/dL 08/10/17 17:46 AST 10 units/L (5-40) 08/10/17 17:46 ALT 6 units/L (7-56) L 08/10/17 17:46 Alkaline Phosphatase 84 units/L (35-129) 08/10/17 17:46 Total Creatine Kinase 20 units/L (30-135) L 08/11/17 06:05 CK-MB (CK-2) < 1.0 ng/mL (0.0-4.0) 08/11/17 06:05 CK-MB (CK-2) Rel Index 5.0 (0-4) H 08/11/17 06:05 Troponin T < 0.010 ng/mL (0.00-0.029) 08/11/17 06:05 Total Protein 7.0 g/dL (6.3-8.2) 08/10/17 17:46 Albumin 4.0 g/dL (3.9-5) 08/10/17 17:46 Albumin/Globulin Ratio 1.3 % 08/10/17 17:46 Triglycerides 85 mg/dL (2-149) 08/11/17 06:05 Cholesterol 130 mg/dL (50-199) 08/11/17 06:05 LDL Cholesterol Direct 92 mg/dL (50-130) 08/11/17 06:05 HDL Cholesterol 29 mg/dL (40-59) L 08/11/17 06:05 Cholesterol/HDL Ratio 4.48 % 08/11/17 06:05 TSH 1.230 mlU/mL (0.270-4.200) 08/10/17 17:46 Free T4 0.97 ng/dL (0.76-1.46) 08/10/17 17:46
[2017-08-11] MEDS: DESYREL PO SCH ×2 (20:38→21:03)
--- NOTE | 2017-08-11 20:59 | Electroencephalogram Report ---
Electroencephalogram EEG Date of exam: 08/11/17 Description: The waking background shows an appropriate organization with well-defined anterior posterior voltage and frequency gradients. Posteriorly, there is a well -developed alpha rhythm of 9 Hz which is symmetrical and bilaterally reactive. There is artifact at O1 off and on which seems tied to jaw motion. No sleep captured. No epileptiform activity. Interpretation: Preliminary reading: normal waking EEG.
[2017-08-11] MEDS ORDERED: TRILAFON PO SCH ×2 (21:00)
[2017-08-11] MEDS ORDERED: TRAZODONE HCL 300 MG PO SCH (21:00)
[2017-08-11] MEDS ORDERED: DESYREL PO SCH (21:00)
[2017-08-12 08:00] LABS: INR 1.12 (0.87-1.13)
[2017-08-12] MEDS: TOPAMAX PO SCH (10:36)
[2017-08-12] MEDS: ASPIRIN PO SCH (10:36)
[2017-08-12] MEDS: PROzac PO SCH (10:36)
[2017-08-12] MEDS: HABITROL TD SCH (10:36)
--- NOTE | 2017-08-12 11:18 | Discharge Summary ---
Providers - Providers Date of Admission: 08/10/17 22:31 Attending physician: OCTAVIO MORRIS MD 08/10/17 22:31 Occupational Therapy Evaluate and Treat [CONS] Routine Comment: Reason For Exam: Neuro deficits Physical Therapy Evaluation and Treat [CONS] Routine Comment: Reason For Exam: Neuro deficits 08/10/17 22:42 Consult to Physician [CONS] Routine Comment: Consulting Provider: ASHLEY BANUELOS Physician Instructions: Reason For Exam: tia Primary care physician: CRITICAL CARE UNIT NURSE Hospitalization Reason for admission: TGA Condition: Fair Hospital course: 31 -year-old woman with a history of bipolar, schizophrenia, CVA, TIAs, factor V Leiden deficiency was sent to the emergency room for evaluation of memory loss , and right-sided numbness. Patient does not recall why she is here in the hospital. She stated her right leg feels numb but that is because she has been sitting. Patient was seen and examined by Neurology, no clinical findings of stroke per the neurologist, Trazadone dose was reduced and patient was restarted on coumadin with extensive counselling about compliance. The patient has had a prior stroke and was initiated on low dose Statin. No ASA was started in the setting of warfarin. It is known that the patient had a GI bleed years ago and she will monitor her warfarin level and will follow with PCP also monitor for signs of bleeding. We had extensive discussion about this risk with patient and boyfriend in the room per patients request and they both noted. Discharge diagnosis Migraine Orthostatic hypotension Anemia bipolar schizophrenia Transient Global Amnesia Migraine headache factor V Leiden deficiency CLL Disposition: DC-01 TO HOME OR SELFCARE Time spent for discharge: 35 mins Core Measure Documentation - Palliative Care Palliative Care/ Comfort Measures: Not Applicable - Core Measures Any of the following diagnoses?: none - VTE Discharge Requirements Deep Vein Thrombosis/Pulmonary Embolism Present on Admission: No Exam - Physical Exam Narrative exam: VITAL SIGNS: Reviewed. GENERAL: The patient appeared well nourished and normally developed. Vital signs as documented. HEAD: No signs of head trauma. EYES: Pupils are equal. Extraocular motions intact. EARS: Hearing grossly intact. MOUTH: Oropharynx is normal. NECK: No adenopathy, no JVD. CHEST: Chest with clear breath sounds bilaterally. No wheezes, rales, or rhonchi. CARDIAC: Regular rate and rhythm. S1 and S2, without murmurs, gallops, or rubs. VASCULAR: No Edema. Peripheral pulses normal and equal in all extremities. ABDOMEN: Soft, without detectable tenderness. No sign of distention. No rebound or guarding, and no masses palpated. Bowel Sounds normal. MUSCULOSKELETAL: Good range of motion of all major joints. Extremities without clubbing, cyanosis or edema. NEUROLOGIC EXAM: Alert and oriented x 3. No focal sensory or strength deficits. Speech normal. Follows commands. PSYCHIATRIC: Mood normal. SKIN: No rash or lesions. - Constitutional Vitals: Temp Pulse Resp BP Pulse Ox 98.3 F 61 18 90/38 96 08/12/17 08:11 08/12/17 10:00 08/12/17 08:11 08/12/17 08:11 08/12/17 08:12 Plan Activity: advance as tolerated, fall precautions Diet: low cholesterol Special Instructions: record daily BP diary Additional Instructions: follow with psychiatrist Follow up with: PRIMARY CARE, [Primary Care Provider] - 3-5 Days Forms: Warfarin Discharge Instruction, Discharge Signature Page Prescriptions: Simvastatin [Zocor TAB] 20 mg PO QHS #30 tablet traZODone [Desyrel] 225 mg PO QHS #30 tablet Nicotine [Habitrol] 14 mg TD QDAY #7 patch Topiramate [Topamax] 200 mg PO QAM #30 tablet Warfarin [Coumadin] 5 mg PO DAILY@1700 #30 tablet
[2017-08-12 12:41] VITALS: BP 106/63
== END 2017-08-12 13:39 | disposition home or self-care (01) | DRG 71 ==
LOC: ED 16:18 → 4A 22:31
PROVIDERS: ADMIT Internal Medicine; ATTEND Internal Medicine
PROC: 3E0234Z Introduction of Serum, Toxoid and Vaccine into Muscle, Percutaneous Approach (ICD-10-PCS; principal; 2017-08-11)
DX: G45.4 Transient global amnesia (principal); D68.51 Activated protein C resistance; C91.10 Chronic lymphocytic leukemia of B-cell type not having achieved remission; D68.2 Hereditary deficiency of other clotting factors; F20.9 Schizophrenia, unspecified; R29.701 NIHSS score 1; F17.200 Nicotine dependence, unspecified, uncomplicated; G43.909 Migraine, unspecified, not intractable, without status migrainosus; I95.1 Orthostatic hypotension; F43.10 Post-traumatic stress disorder, unspecified; X58.XXXA Exposure to other specified factors, initial encounter; Y93.89 Activity, other specified; Y92.89 Other specified places as the place of occurrence of the external cause; Y99.8 Other external cause status; Z90.49 Acquired absence of other specified parts of digestive tract; Z98.51 Tubal ligation status; Z86.718 Personal history of other venous thrombosis and embolism; Z82.49 Family history of ischemic heart disease and other diseases of the circulatory system; Z79.01 Long term (current) use of anticoagulants; Z79.899 Other long term (current) drug therapy; Z88.8 Allergy status to other drugs, medicaments and biological substances; Z23 Encounter for immunization; Z84.89 Family history of other specified conditions; Z82.3 Family history of stroke; Z83.3 Family history of diabetes mellitus; Z71.89 Other specified counseling
CPT/HCPCS: 36415; 70450; 70551; 80048; 80061; 80074; 82550; 82553; 82962; 84439; 84443; 84484; 85025; 85610; 85730; 90732; 93005; 93010; 93306; 93880; 95819; 99285; G8978-GP; G8979-GP; G8982-GP; G8983-GP; G8984-GP; J7030

== ENCOUNTER 2017-11-27 10:46 | Emergency (ER) | payer MEDICAID ==
[2017-11-27 15:00] LABS: Basophils # (Auto) 0.1 K/mm3 (0.0-0.1); Basophils % (Auto) 1.2 % (0.0-1.8); Eosinophils # (Auto) 0.2 K/mm3 (0.0-0.4); Eosinophils % (Auto) 2.1 % (0.0-4.3); Hemoglobin 13.7 gm/dl (10.1-14.3); Lymphocytes # (Auto) 2.5 K/mm3 (1.2-5.4); Lymphocytes % (Auto) 33.9 % (13.4-35.0); Mean Corpuscular HGB Conc 34 % (30-34); Mean Corpuscular Hemoglobin 30 pg (28-32); Mean Corpuscular Volume 88 fl (79-97); Monocytes # (Auto) 0.4 K/mm3 (0.0-0.8); Monocytes % (Auto) 6.1 % (0.0-7.3); Red Blood Count 4.65 M/mm3 (3.65-5.03)
--- NOTE | 2017-11-27 15:04 | Emergency Department Report ---
ED Chest Pain HPI - General Chief Complaint: Chest Pain Stated Complaint: CHEST PAIN Time Seen by Provider: 11/27/17 13:55 Source: patient Mode of arrival: Ambulatory Limitations: No Limitations - History of Present Illness Initial Comments: Patient presents to the emergency department with complaint of intermittent chest pain 1 week. Patient states she had an abnormal stress test and was sent by her primary care physician from [facility] for further evaluation. Patient states she is currently chest pain-free and denies any shortness of breath, abdominal pain, headache. -: Gradual Pain Location: other (diffuse) Pain Radiation: none Severity: mild Severity scale (0 -10): 4 Quality: tightness Consistency: constant Improves With: nothing Worsens With: nothing re: denies: nausea, vomting - Related Data Home Medications Medication Instructions Recorded Confirmed Last Taken FLUoxetine HCL [PROzac] 40 mg PO QAM 08/10/17 08/10/17 Unknown Perphenazine [Trilafon] 16 mg PO DAILY@2100 08/10/17 08/10/17 Unknown Previous Rx's Medication Instructions Recorded Last Taken Type Nicotine [Habitrol] 14 mg TD QDAY #7 patch 08/12/17 Unknown Rx Simvastatin [Zocor TAB] 20 mg PO QHS #30 tablet 08/12/17 Unknown Rx Topiramate [Topamax] 200 mg PO QAM #30 tablet 08/12/17 Unknown Rx Warfarin [Coumadin] 5 mg PO DAILY@1700 #30 tablet 08/12/17 Unknown Rx traZODone [Desyrel] 225 mg PO QHS #30 tablet 08/12/17 Unknown Rx Allergies Allergy/AdvReac Type Severity Reaction Status Date / Time cefaclor [From Ceclor] Allergy Hives Verified 10/08/16 15:32 olanzapine [From Zyprexa] Allergy Swelling Verified 10/08/16 15:32 Heart Score - HEART Score History: Slightly suspicious EKG: Normal Age: < 45 Risk factors: No known risk factors Troponin: 1-3x normal limit HEART Score: 1 - Critical Actions Critical Actions: 0-3 pts:0.9-1.7%risk of adverse cardiac event.Candidate for discharge ED Review of Systems ROS: Stated complaint: CHEST PAIN Other details as noted in HPI Comment: All other systems reviewed and negative Constitutional: denies: chills, fever Eyes: denies: eye pain, eye discharge, vision change ENT: denies: ear pain, throat pain Respiratory: denies: cough, shortness of breath, wheezing Cardiovascular: chest pain. denies: palpitations Endocrine: no symptoms reported Gastrointestinal: denies: abdominal pain, nausea, diarrhea Genitourinary: denies: urgency, dysuria, discharge Musculoskeletal: denies: back pain, joint swelling, arthralgia Skin: denies: rash, lesions Neurological: denies: headache, weakness, paresthesias Psychiatric: denies: anxiety, depression Hematological/Lymphatic: denies: easy bleeding, easy bruising ED Past Medical Hx - Past Medical History Hx Hypertension: No Hx CVA: Yes (x5) Hx Heart Attack/AMI: No Hx Congestive Heart Failure: No Hx Diabetes: No Hx Deep Vein Thrombosis: Yes Hx Pulmonary Embolism: No Hx Liver Disease: No Hx Sickle Cell Disease: No Hx Seizures: No Hx Psychiatric Treatment: Yes (BIPOLAR / SCHIZOPHRENIA / PTSD) Hx Asthma: Yes Hx COPD: No Hx Tuberculosis: No Hx Dementia: No Additional medical history: Factor V Leiden, Leukemia, DVT - Surgical History Hx Coronary Stent: No Hx Open Heart Surgery: No Hx Pacemaker: No Hx Internal Defibrillator: No Hx Cholecystectomy: Yes Hx Appendectomy: No Hx Breast Surgery: No Additional Surgical History: X 2. TUBAL LIGATION - Social History Smoking Status: Current Every Day Smoker Substance Use Type: None - Medications Home Medications: Home Medications Medication Instructions Recorded Confirmed Last Taken Type FLUoxetine HCL [PROzac] 40 mg PO QAM 08/10/17 08/10/17 Unknown History Perphenazine [Trilafon] 16 mg PO DAILY@2100 08/10/17 08/10/17 Unknown History Nicotine [Habitrol] 14 mg TD QDAY #7 patch 08/12/17 Unknown Rx Simvastatin [Zocor TAB] 20 mg PO QHS #30 tablet 08/12/17 Unknown Rx Topiramate [Topamax] 200 mg PO QAM #30 tablet 08/12/17 Unknown Rx Warfarin [Coumadin] 5 mg PO DAILY@1700 #30 tablet 08/12/17 Unknown Rx traZODone [Desyrel] 225 mg PO QHS #30 tablet 08/12/17 Unknown Rx ED Physical Exam - General Limitations: No Limitations General appearance: alert, in no apparent distress - Head Head exam: Present: atraumatic, normocephalic - Eye Eye exam: Present: normal appearance - ENT ENT exam: Present: mucous membranes moist - Neck Neck exam: Present: normal inspection - Respiratory Respiratory exam: Present: normal lung sounds bilaterally. Absent: respiratory distress, wheezes, rales, rhonchi - Cardiovascular Cardiovascular Exam: Present: regular rate, normal rhythm. Absent: systolic murmur, diastolic murmur, rubs, gallop - GI/Abdominal GI/Abdominal exam: Present: soft, normal bowel sounds. Absent: distended, tenderness - Extremities Exam Extremities exam: Present: normal inspection - Back Exam Back exam: Present: normal inspection - Neurological Exam Neurological exam: Present: alert, oriented X3, CN II-XII intact. Absent: motor sensory deficit - Psychiatric Psychiatric exam: Present: normal affect, normal mood - Skin Skin exam: Present: warm, dry, intact, normal color. Absent: rash ED Course Vital Signs 11/27/17 12:16 Temperature 98.3 F Pulse Rate 60 Respiratory 16 Rate Blood Pressure 117/68 O2 Sat by Pulse 96 Oximetry JANI score - Jani Score Age > 65: (0) No Aspirin use within the Past 7 Days: (0) No 3 or more CAD Risk Factors: (0) No 2 or more Angina events in past 24 hrs: (0) No Known CAD with more than 50% Stenosis: (0) No Elevated Cardiac Markers: (0) No ST Deviation Greater than 0.5mm: (0) No JANI Score: 0 ED Medical Decision Making - Lab Data Result diagrams: 11/27/17 14:44 11/27/17 14:44 - EKG Data EKG shows normal: sinus rhythm Rate: bradycardia (rate of 54) - EKG Data Interpretation: other (nonspecific ST-T wave abnormalities) - Medical Decision Making I contacted so [facility] and spoke with Desirae with the patient's nurse practitioner and I was informed that the patient had 11:[address] Archuleta at [facility]. Contacted [facility] and the patient was discussed. Plan is to do a Cardiac workup and contact them when completed Stress test was received from [facility] and it shows a perfusion abnormality of moderate intensity in the basal anterior septal, mid anteroseptal and apical myocardial sanders consistent with a prior myocardial infarction Spoke to Norm Shell NP who discussed the patient with attending plastic tool maker that the patient is chest pain-free and with 2 negative troponins she can follow-up in the office as outpatient Critical care attestation.: If time is entered above; I have spent that time in minutes in the direct care of this critically ill patient, excluding procedure time. ED Disposition Clinical Impression: Chest pain Disposition: DC-01 TO HOME OR SELFCARE Is pt being admited?: No Does the pt Need Aspirin: No Condition: Stable Instructions: Chest Pain (ED) Additional Instructions: Return if worse Referrals: PRIMARY CAREMD [Primary Care Provider] - 3-5 Days TARIQ DUNAWAY MD [Staff Physician] - 3-5 Days Time of Disposition: 18:52
[2017-11-27 15:15] LABS: BUN/Creatinine Ratio 7; Blood Urea Nitrogen 4 mg/dL (7-17); Calcium 8.9 mg/dL (8.4-10.2); Hemolysis Index 32
[2017-11-27 15:35] LABS: Platelet Count 132 K/mm3 (140-440)
[2017-11-27 19:07] VITALS: BP 120/72
== END 2017-11-27 19:06 | disposition home or self-care (01) ==
LOC: ED 10:46
DX: R07.89 Other chest pain (principal); F17.200 Nicotine dependence, unspecified, uncomplicated; J45.909 Unspecified asthma, uncomplicated; F31.9 Bipolar disorder, unspecified; F20.9 Schizophrenia, unspecified; Z98.51 Tubal ligation status; Z88.1 Allergy status to other antibiotic agents; Z88.8 Allergy status to other drugs, medicaments and biological substances
CPT/HCPCS: 36415; 80048; 84484; 85025; 93005; 93010

== ENCOUNTER 2017-12-09 08:40 | Day surgery (SDC) | payer MEDICAID ==
[2017-12-09 10:14] LABS: BUN/Creatinine Ratio 10; Blood Urea Nitrogen 6 mg/dL (7-17); Calcium 8.6 mg/dL (8.4-10.2); Hemolysis Index 35
[2017-12-09] MEDS ORDERED: NITROSTAT SL ONE (10:30)
[2017-12-09] MEDS ORDERED: LOPRESSOR IV ONE (10:30)
--- NOTE | 2017-12-09 11:37 | Cat Scan Report ---
LIMITED CT OF THE CHEST PER CT CORONARY ANGIOGRAPHY PROTOCOL: History: Chest pain. Limited CT of the chest per CT coronary angiography protocol is submitted. The cardiac portion of the exam has been previously interpreted by the Tube Station Attendant. The included portions of the lungs appear clear without evidence for nodule, mass or infiltrate. The included pleural spaces are clear. No mediastinal or hilar adenopathy is evident. Included upper abdomen and solid abdominal organs are grossly within normal limits. IMPRESSION: Normal limited CT of the chest as noted.
[2017-12-09 13:14] VITALS: BP 105/62
--- NOTE | 2017-12-11 21:40 | Procedure Note ---
INDICATION: Chest pain. REFERRING PHYSICIAN: Bob Wellington MD PROCEDURE: The patient received 0.4 mg of nitroglycerin sublingual for coronary vasodilation prior to scanning. Using 64 slice MDCT, low-dose, noncontrast calcium scoring CT was performed with prospective gating followed by a contrast enhanced CTA at 0.6 mm thickness with retrospective gating and 100 mL Isovue of 370 IV. The scan was performed from the sulema to the base of the heart and data was reconstructed using multiple cardiac phases. FINDINGS: 1. The overall quality of the scan is good. 2. The total calcium score is 0 indicating the absence of calcified atherosclerotic plaque and a very low cardiovascular disease risk. 3. This is a right dominant circulation. 4. The left main originates from left coronary cusp and is angiographically normal. 5. The left main bifurcates in normal fashion into the LAD and the left circumflex artery. 6. The left anterior descending artery has no evidence of obstructive disease. 7. The left circumflex artery has no evidence of obstructive disease. 8. The high OM or the ramus intermedius have no evidence of obstructive disease. 9. The right coronary artery is a dominant vessel. The right coronary artery has no evidence of obstructive disease. The PDA and PLVB are well visualized with no evidence of obstructive disease. 10. The aorta is normal in size measuring 23 x 20 mm in the ascending aortic segment. 11. The aortic valve is trileaflet. 12. The pulmonary veins are visualized entering the left atrium in a normal fashion. 13. The left ventricle is normal in size with normal wall motion with an ejection fraction calculated at 71%. 14. There is no evidence of pericardial effusion. 15. The radiology overread of extracardiac structures. 16. Normal Limited CT of the chest as noted. IMPRESSION: 1. Good quality scan. 2. Zero calcium score, indicating the absence of calcified atherosclerotic plaque and a very low cardiovascular disease risk. 3. Normal right dominant circulation with no evidence of obstructive coronary artery disease. 4. Normal left ventricular size and wall motion with an ejection fraction measured at 71%. JOB# [id number] DINORA/RUI
== END 2017-12-09 12:08 | disposition home or self-care (01) ==
LOC: CATHLABREC 08:40 → EDSTATUS 09:45 → CATHLABREC 12:08
PROVIDERS: ATTEND Internal Medicine Cardiovascular Disease
DX: I20.9 Angina pectoris, unspecified (principal); I10 Essential (primary) hypertension; J45.909 Unspecified asthma, uncomplicated; F31.9 Bipolar disorder, unspecified; F17.200 Nicotine dependence, unspecified, uncomplicated; Z79.899 Other long term (current) drug therapy; Z88.1 Allergy status to other antibiotic agents; Z88.8 Allergy status to other drugs, medicaments and biological substances; Z90.49 Acquired absence of other specified parts of digestive tract; Z98.51 Tubal ligation status; Z90.710 Acquired absence of both cervix and uterus; Z98.891 History of uterine scar from previous surgery; Z85.6 Personal history of leukemia; Z86.73 Personal history of transient ischemic attack (TIA), and cerebral infarction without residual deficits
CPT/HCPCS: 36415; 75574; 80048; 93005; 93010; Q9967

== ENCOUNTER 2018-08-08 17:56 | Emergency (ER) | payer MEDICAID ==
--- NOTE | 2018-08-08 18:06 | Emergency Department Report ---
Blank Doc - Documentation Documentation: 32 y/o female c/o low blood pressure , light headache, nausea and vomiting yes terday. LMP 07/22/18. No pmh .
[2018-08-08 18:13] VITALS: BP 154/78
[2018-08-08 18:22] LABS: Basophils # (Auto) 0.1 K/mm3 (0.0-0.1); Basophils % (Auto) 0.9 % (0.0-1.8); Eosinophils # (Auto) 0.2 K/mm3 (0.0-0.4); Eosinophils % (Auto) 2.9 % (0.0-4.3); Hematocrit 40.2 % (30.3-42.9); Hemoglobin 13.9 gm/dl (10.1-14.3); Lymphocytes # (Auto) 2.3 K/mm3 (1.2-5.4); Lymphocytes % (Auto) 33.9 % (13.4-35.0); Mean Corpuscular HGB Conc 35 % (30-34); Mean Corpuscular Volume 93 fl (79-97); Monocytes # (Auto) 0.6 K/mm3 (0.0-0.8); Monocytes % (Auto) 9.4 % (0.0-7.3); Platelet Count 178 K/mm3 (140-440); Red Blood Count 4.34 M/mm3 (3.65-5.03); Red Cell Distribution Width 14.3 % (13.2-15.2)
[2018-08-08 18:43] LABS: Alanine Aminotransferase 11 units/L (7-56); Albumin 3.8 g/dL (3.9-5); BUN/Creatinine Ratio 9; Blood Urea Nitrogen 6 mg/dL (7-17); Calcium 8.7 mg/dL (8.4-10.2); Hemolysis Index 29
[2018-08-08 19:29] LABS: Bacteria,Urine 4+ /HPF (Negative); Bilirubin,Urine NEG (Negative); Blood,Urine NEG (Negative); Color,Urine Yellow (Yellow); Mucus,Urine FEW /HPF; Protein,Urine <15 mg/dL mg/dL (Negative); Urobilinogen,Urine < 2.0 mg/dL (<2.0)
[2018-08-08] MEDS ORDERED: BENADRYL IV ONE (19:48)
[2018-08-08] MEDS ORDERED: DECADRON IV ONE (19:48)
[2018-08-08] MEDS ORDERED: TORADOL IV ONE (19:48)
[2018-08-08] MEDS ORDERED: NACL 0.9% 1000 ML 1,000 ML IV ONE (19:48)
[2018-08-08] MEDS ORDERED: REGLAN IV ONE (19:48)
--- NOTE | 2018-08-08 21:30 | Emergency Department Report ---
ED General Adult HPI - General Chief complaint: Dizziness Stated complaint: BP/DIZZY/LIGHTHEADED/NAUSEA Time Seen by Provider: 08/08/18 19:47 Source: patient Mode of arrival: Ambulatory Limitations: No Limitations - History of Present Illness Initial comments: 32 y/o female c/o low blood pressure , light headache, nausea and vomiting yesterday. LMP 07/22/18. pt does endorse hx of migraine headache on topomax, and fioricet for korey, bp noted normal today there is no vertigo Onset/Timin -: days(s) Location: head Radiation: non-radiation Severity scale (0 -10): 4 Quality: aching, sharp Consistency: constant Improves with: none Worsens with: movement, other (activity ) Associated Symptoms: headaches, nausea/vomiting. denies: fever/chills, seizure, shortness of breath, syncope, weakness Treatments Prior to Arrival: none - Related Data Home Medications Medication Instructions Recorded Confirmed Last Taken Aspirin 81 mg PO DAILY 07/05/18 07/06/18 Unknown Previous Rx's Medication Instructions Recorded Last Taken Type Butalb/Acetamin/Caff 50-325-40 2 tab PO Q4H PRN #60 tablet 07/06/18 Unknown Rx [Fioricet] FLUoxetine HCL [PROzac] 40 mg PO QAM #30 capsule 07/06/18 Unknown Rx Olanzapine [Olanzapine Odt] 15 mg PO QHS #30 tab.rapdis 07/06/18 Unknown Rx Topiramate [Topamax] 200 mg PO QAM #30 tablet 07/06/18 Unknown Rx methylPREDNISolone [Medrol Dose 0 mg PO DAILY #1 pack 07/06/18 Unknown Rx Wilman] traZODone [Desyrel] 200 mg PO HS #60 tablet 07/06/18 Unknown Rx Allergies Allergy/AdvReac Type Severity Reaction Status Date / Time cefaclor [From Ceclor] Allergy Hives Verified 08/08/18 17:58 olanzapine [From Zyprexa] Allergy Swelling Verified 08/08/18 17:58 prednisone Allergy Unknown Verified 08/08/18 17:58 ED Review of Systems ROS: Stated complaint: BP/DIZZY/LIGHTHEADED/NAUSEA Other details as noted in HPI Constitutional: denies: chills, fever Eyes: denies: eye pain, eye discharge, vision change ENT: congestion (sinus ) Respiratory: denies: cough, shortness of breath, wheezing Cardiovascular: denies: chest pain, palpitations Endocrine: no symptoms reported Gastrointestinal: nausea, vomiting Genitourinary: denies: urgency, dysuria, frequency, hematuria, discharge Musculoskeletal: denies: back pain, joint swelling, arthralgia Skin: denies: rash, lesions Neurological: headache. denies: weakness, numbness, confusion, vertigo Psychiatric: denies: anxiety, depression Hematological/Lymphatic: denies: easy bleeding, easy bruising ED Past Medical Hx - Past Medical History Hx Hypertension: Yes Hx CVA: Yes (x5) Hx Heart Attack/AMI: No Hx Congestive Heart Failure: No Hx Diabetes: No Hx Deep Vein Thrombosis: Yes Hx Pulmonary Embolism: No Hx Liver Disease: No Hx Renal Disease: No Hx Sickle Cell Disease: No Hx Seizures: No Hx Psychiatric Treatment: Yes (BIPOLAR / SCHIZOPHRENIA / PTSD/ Anxiety) Hx Asthma: Yes Hx COPD: No Hx Tuberculosis: No Hx Dementia: No Hx HIV: No Additional medical history: Factor V Leiden, Leukemia - Surgical History Hx Coronary Stent: No Hx Open Heart Surgery: No Hx Pacemaker: No Hx Internal Defibrillator: No Hx Cholecystectomy: Yes Hx Appendectomy: No Hx Breast Surgery: No Additional Surgical History: X 2. TUBAL LIGATION - Social History Smoking Status: Never Smoker Substance Use Type: None - Medications Home Medications: Home Medications Medication Instructions Recorded Confirmed Last Taken Type Aspirin 81 mg PO DAILY 07/05/18 07/06/18 Unknown History Butalb/Acetamin/Caff 50-325-40 2 tab PO Q4H PRN #60 tablet 07/06/18 Unknown Rx [Fioricet] FLUoxetine HCL [PROzac] 40 mg PO QAM #30 capsule 07/06/18 Unknown Rx Olanzapine [Olanzapine Odt] 15 mg PO QHS #30 tab.rapdis 07/06/18 Unknown Rx Topiramate [Topamax] 200 mg PO QAM #30 tablet 07/06/18 Unknown Rx methylPREDNISolone [Medrol Dose 0 mg PO DAILY #1 pack 07/06/18 Unknown Rx Wilman] traZODone [Desyrel] 200 mg PO HS #60 tablet 07/06/18 Unknown Rx ED Physical Exam - General Limitations: No Limitations General appearance: alert, in no apparent distress - Head Head exam: Present: atraumatic, normocephalic, normal inspection - Eye Eye exam: Present: normal appearance, PERRL, EOMI Pupils: Present: normal accommodation - ENT ENT exam: Present: normal orophraynx, mucous membranes moist, normal external ear exam, other (bilat frontal and maxillary sinus pain to palpation no swelling no erythema ) - Expanded ENT Exam Expanded Ear exam: Present: normal external inspection Throat exam: Positive: tonsillar erythema, tonsillomegaly, other (uvula midline no exudate no lesion no stridor no swelling ). Negative: tonsillar exudate, R peritonsillar mass, L peritonsillar mass - Neck Neck exam: Present: normal inspection - Respiratory Respiratory exam: Present: normal lung sounds bilaterally. Absent: respiratory distress, wheezes, stridor, chest wall tenderness - Cardiovascular Cardiovascular Exam: Present: regular rate, normal rhythm, normal heart sounds. Absent: systolic murmur, diastolic murmur, rubs, gallop - GI/Abdominal GI/Abdominal exam: Present: soft, normal bowel sounds. Absent: distended, tenderness, guarding, rebound, rigid, bruit, hernia - Rectal Rectal exam: Present: deferred - Extremities Exam Extremities exam: Present: normal inspection, normal capillary refill. Absent: tenderness, pedal edema, joint swelling, calf tenderness - Back Exam Back exam: Present: normal inspection, full ROM, CVA tenderness (R), muscle spasm. Absent: tenderness, CVA tenderness (L), paraspinal tenderness, rash noted - Neurological Exam Neurological exam: Present: alert, oriented X3, CN II-XII intact, normal gait, reflexes normal. Absent: motor sensory deficit - Psychiatric Psychiatric exam: Present: normal affect, normal mood - Skin Skin exam: Present: warm, dry, intact, normal color. Absent: rash ED Course Vital Signs 08/08/18 18:09 Temperature 99.1 F Pulse Rate 93 H Respiratory 18 Rate Blood Pressure 154/78 O2 Sat by Pulse 96 Oximetry ED Medical Decision Making - Lab Data Result diagrams: 08/08/18 18:13 08/08/18 18:13 Labs 08/08/18 08/08/18 08/08/18 18:13 18:13 Unknown WBC 6.8 RBC 4.34 Hgb 13.9 Hct 40.2 MCV 93 MCH 32 MCHC 35 H RDW 14.3 Plt Count 178 Lymph % (Auto) 33.9 Meade % (Auto) 9.4 H Eos % (Auto) 2.9 Baso % (Auto) 0.9 Lymph # 2.3 Meade # 0.6 Eos # 0.2 Baso # 0.1 Seg Neutrophils % 52.9 Seg Neutrophils # 3.6 Sodium 140 Potassium 4.1 Chloride 104.7 Carbon Dioxide 25 Anion Gap 14 BUN 6 L Creatinine 0.7 Estimated GFR > 60 BUN/Creatinine Ratio 9 Glucose 87 Calcium 8.7 Total Bilirubin < 0.20 AST 12 ALT 11 Alkaline Phosphatase 78 Total Protein 6.9 Albumin 3.8 L Albumin/Globulin Ratio 1.2 Urine Color Yellow Urine Turbidity Slightly-cloudy Urine pH 6.0 Ur Specific Putnam 1.018 Urine Protein <15 mg/dl Urine Glucose (UA) Neg Urine Ketones Neg Urine Blood Neg Urine Nitrite Neg Urine Bilirubin Neg Urine Urobilinogen < 2.0 Ur Leukocyte Esterase Tr Urine WBC (Auto) 3.0 Urine RBC (Auto) 4.0 U Epithel Cells (Auto) 3.0 Urine Bacteria (Auto) 4+ Urine Mucus Few - Medical Decision Making headache is resolved per patient , plan: dc to home continue topomax, fioricet, benadryl follow up with pcp tomorrow return to ed if symptoms worsen or return , pt verbalized agreement and understanding of discharge plan. Critical care attestation.: If time is entered above; I have spent that time in minutes in the direct care of this critically ill patient, excluding procedure time. ED Disposition Clinical Impression: Headache Qualifiers: Headache type: unspecified Headache chronicity pattern: acute headache Intractability: not intractable Qualified Code(s): R51 - Headache Disposition: DC-01 TO HOME OR SELFCARE Is pt being admited?: No Does the pt Need Aspirin: No Condition: Stable Instructions: Acute Headache (ED) Referrals: PRIMARY CARE, [Primary Care Provider] - 3-5 Days NEVA ALVES MD [Staff Physician] - 3-5 Days Forms: Work/School Release Form(ED) Time of Disposition: 21:40
== END 2018-08-08 22:12 | disposition home or self-care (01) ==
LOC: ED 17:56
DX: G43.909 Migraine, unspecified, not intractable, without status migrainosus (principal); I10 Essential (primary) hypertension; J45.909 Unspecified asthma, uncomplicated; Z86.718 Personal history of other venous thrombosis and embolism; Z90.49 Acquired absence of other specified parts of digestive tract; Z98.51 Tubal ligation status; Z88.8 Allergy status to other drugs, medicaments and biological substances; Z79.82 Long term (current) use of aspirin
CPT/HCPCS: 36415; 80053; 81001; 85025; 96361; 96374; 96375; 99283; J1100; J1200; J1885; J2765; J7030

== ENCOUNTER 2019-02-13 15:04 | Observation (INO) | payer SELFPAY ==
--- NOTE | 2019-02-13 15:12 | Emergency Department Report ---
Blank Doc - Documentation Documentation: 33-year-old female that presents with chest pain, dizziness with radiation to right arm. HX of cardiac. This initial assessment/diagnostic orders/clinical plan/treatment(s) is/are subject to change based on patient's health status, clinical progression and re- assessment by fellow clinical providers in the ED. Further treatment and workup at subsequent clinical providers discretion. Patient/guardians urged not to elope from the ED as their condition may be serious if not clinically assessed and managed. Initial orders include: 1- Patient sent to MAIN for further evaluation and treatment 2- labs 3- UA 4- EKG 5- CXR
[2019-02-13 15:52] LABS: Basophils # (Auto) 0.1 K/mm3 (0.0-0.1); Basophils % (Auto) 1.1 % (0.0-1.8); Eosinophils # (Auto) 0.2 K/mm3 (0.0-0.4); Eosinophils % (Auto) 3.6 % (0.0-4.3); Hematocrit 40.7 % (30.3-42.9); Hemoglobin 13.4 gm/dl (10.1-14.3); Lymphocytes % (Auto) 30.8 % (13.4-35.0); Mean Corpuscular HGB Conc 33 % (30-34); Mean Corpuscular Volume 96 fl (79-97); Monocytes # (Auto) 0.4 K/mm3 (0.0-0.8); Platelet Count 200 K/mm3 (140-440); Red Blood Count 4.25 M/mm3 (3.65-5.03); Red Cell Distribution Width 15.9 % (13.2-15.2)
[2019-02-13 16:06] LABS: INR 1.12 (0.87-1.13)
[2019-02-13 16:07] LABS: Partial Thromboplastin Time 28.4 Sec. (24.2-36.6)
[2019-02-13 16:18] LABS: Albumin 3.7 g/dL (3.9-5); BUN/Creatinine Ratio 9; Blood Urea Nitrogen 6 mg/dL (7-17); Calcium 8.6 mg/dL (8.4-10.2); Hemolysis Index 174
[2019-02-13 16:27] LABS: Alanine Aminotransferase 21 units/L (7-56)
--- NOTE | 2019-02-13 19:09 | XRay Report ---
CHEST 2 VIEWS INDICATION: Chest Pain. COMPARISON: Chest x-ray from 07/05/2018 FINDINGS: Support devices: None. Heart: Within normal limits. Lungs/pleura: No acute air space or interstitial disease. No pneumothorax. Additional findings: None. IMPRESSION: 1. No acute findings. Signer Name: Mike Jauregui MD Signed: 02/13/2019 7:04 PM Workstation Name: [id number]
[2019-02-13] MEDS ORDERED: ONDANSETRON 4 MG/2 ML INJ IV ONE (21:40)
[2019-02-13] MEDS ORDERED: fentaNYL 100 MCG/2 ML INJ IV ONE (21:40)
[2019-02-13] MEDS ORDERED: ASPIRIN 325 MG TAB PO ONE (21:40)
--- NOTE | 2019-02-13 21:56 | Emergency Department Report ---
HPI - General Chief Complaint: High BP Time Seen by Provider: 02/13/19 15:11 - HPI HPI: Room 24 The patient is a 33-year-old female presenting with a chief complaint chest pain. The patient states she's had a cough and back pain for the past 2 weeks. The patient states this morning she felt dizzy developed substernal chest pain described as a pressure with a stabbing component has been constant. The patient states she's had shortness of breath, nausea/vomiting and diaphoresis with her chest pain. The patient states she went to fire department where she was found to have an elevated blood pressure and was advised to come to the hospital if her symptoms did not improve. The patient states she has a history of factor V Leiden has not been on anticoagulation for approximately one year. The patient states her last stress test occurred 2017 but she's never had a cardiac catheterization Location: [See above] Duration: [See above] Quality: [See above] Severity: [See above] Timing: [See above] Context: [See above] Modifying factors: [See above] Associated signs and symptoms: [see above] ED Past Medical Hx - Past Medical History Hx Hypertension: Yes Hx CVA: Yes (x5) Hx Deep Vein Thrombosis: Yes Hx Psychiatric Treatment: Yes (BIPOLAR / SCHIZOPHRENIA / PTSD/ Anxiety) Hx Asthma: Yes Additional medical history: Factor V Leiden, Leukemia - Surgical History Hx Cholecystectomy: Yes Additional Surgical History: X 2. TUBAL LIGATION - Family History Family history: no significant - Social History Smoking Status: Current Every Day Smoker (1/2 pack per day) Substance Use Type: None (denies illicit drug use) - Medications Home Medications: Home Medications Medication Instructions Recorded Confirmed Last Taken Type Aspirin 81 mg PO DAILY 07/05/18 07/06/18 Unknown History Butalb/Acetamin/Caff 50-325-40 2 tab PO Q4H PRN #60 tablet 07/06/18 Unknown Rx [Fioricet 50-325-40] FLUoxetine HCL [PROzac] 40 mg PO QAM #30 capsule 07/06/18 Unknown Rx Olanzapine [Olanzapine Odt] 15 mg PO QHS #30 tab.rapdis 07/06/18 Unknown Rx Topiramate [Topamax] 200 mg PO QAM #30 tablet 07/06/18 Unknown Rx methylPREDNISolone [Medrol Dose 0 mg PO DAILY #1 pack 07/06/18 Unknown Rx [place]] traZODone [Desyrel] 200 mg PO HS #60 tablet 07/06/18 Unknown Rx ED Review of Systems ROS: Stated complaint: CHEWST PAIN/ALEXANDER/RT ARM Other details as noted in HPI Constitutional: diaphoresis Eyes: denies: eye pain ENT: denies: throat pain Respiratory: shortness of breath Cardiovascular: chest pain Endocrine: no symptoms reported Gastrointestinal: nausea, vomiting Genitourinary: denies: dysuria Musculoskeletal: denies: back pain Skin: denies: lesions Neurological: denies: headache Physical Exam - Physical Exam Vital Signs: Vital Signs 02/13/19 02/13/19 15:14 21:12 Temperature 97.8 F Pulse Rate 75 78 Respiratory 18 16 Rate Blood Pressure 141/76 Blood Pressure 148/87 [Left] O2 Sat by Pulse 97 98 Oximetry Physical Exam: GENERAL: The patient is well-developed well-nourished female lying on stretcher not appearing to be in acute distress. [] HEENT: Normocephalic. Atraumatic. Extraocular motions are intact. Patient has moist mucous membranes. NECK: Supple. No meningitic signs are noted. There is no adenopathy noted. CHEST/LUNGS: Clear to auscultation. There is no respiratory distress noted. HEART/CARDIOVASCULAR: Regular. There is no tachycardia. There is no gallop rub or murmur. ABDOMEN: Abdomen is soft, nontender. Patient has normal bowel sounds. There is no abdominal distention. SKIN: There is no rash. There is no edema. There is no diaphoresis. NEURO: The patient is awake, alert, and oriented. The patient is cooperative. The patient has normal speech MUSCULOSKELETAL: There is no evidence of acute injury. ED Course Vital Signs 02/13/19 02/13/19 15:14 21:12 Temperature 97.8 F Pulse Rate 75 78 Respiratory 18 16 Rate Blood Pressure 141/76 Blood Pressure 148/87 [Left] O2 Sat by Pulse 97 98 Oximetry ED Medical Decision Making - Lab Data Result diagrams: 02/13/19 15:23 02/13/19 15:23 Laboratory Tests 02/13/19 02/13/19 02/13/19 15:23 15:23 15:23 WBC 6.4 RBC 4.25 Hgb 13.4 Hct 40.7 MCV 96 MCH 32 MCHC 33 RDW 15.9 H Plt Count 200 Lymph % (Auto) 30.8 [place] % (Auto) 6.0 Eos % (Auto) 3.6 Baso % (Auto) 1.1 Lymph # 2.0 Zavala # 0.4 Eos # 0.2 Baso # 0.1 Seg Neutrophils % 58.5 Seg Neutrophils # 3.7 PT 14.3 INR 1.12 APTT 28.4 D-Dimer Sodium 138 Potassium 4.7 Chloride 103.1 Carbon Dioxide 21 L Anion Gap 19 BUN 6 L Creatinine 0.7 Estimated GFR > 60 BUN/Creatinine Ratio 9 Glucose 140 H Calcium 8.6 Total Bilirubin < 0.20 AST 25 ALT 21 Alkaline Phosphatase 82 Troponin T < 0.010 Total Protein 7.2 Albumin 3.7 L Albumin/Globulin Ratio 1.1 HCG, Qual 02/13/19 02/13/19 02/13/19 15:23 15:23 18:18 WBC RBC Hgb Hct MCV MCH MCHC RDW Plt Count Lymph % (Auto) [place] % (Auto) Eos % (Auto) Baso % (Auto) Lymph # Zavala # Eos # Baso # Seg Neutrophils % Seg Neutrophils # PT INR APTT D-Dimer 239.58 H Sodium Potassium Chloride Carbon Dioxide Anion Gap BUN Creatinine Estimated GFR BUN/Creatinine Ratio Glucose Calcium Total Bilirubin AST ALT Alkaline Phosphatase Troponin T < 0.010 Total Protein Albumin Albumin/Globulin Ratio HCG, Qual Negative - EKG Data -: EKG Interpreted by Me EKG shows normal: sinus rhythm Rate: normal - EKG Data When compared to previous EKG there are: no significant change Interpretation: unchanged when compared t (07/05/2018) - Radiology Data Radiology results: report reviewed (chest x-ray), image reviewed (chest x-ray) interpreted by me: Chest x-ray-no focal infiltrates, no pneumothorax [facility] [address] [place] [address] XRay Report Signed Patient: UGO DOSS MR#: [id number] : 1985 Acct:[id number] Age/Sex: 33 / F ADM Date: 02/13/19 Loc: ED Attending Dr: Ordering Physician: CAMERON PENNY NP Date of Service: 02/13/19 Procedure(s): XR chest routine 2V Accession Number(s): [id number] cc: CAMERON PENNY NP Fluoro Time In Minutes: CHEST 2 VIEWS INDICATION: Chest Pain. COMPARISON: Chest x-ray from 07/05/2018 FINDINGS: Support devices: None. Heart: Within normal limits. Lungs/pleura: No acute air space or interstitial disease. No pneumothorax. Additional findings: None. IMPRESSION: 1. No acute findings. Signer Name: Mike Jauregui MD Signed: 02/13/2019 7:04 PM Workstation Name: [id number] Transcribed By: JW Dictated By: Mike Jauregui MD Electronically Authenticated By: Mike Jauregui MD Signed Date/Time: 02/13/191903 DD/ 03 TD/TT: - Differential Diagnosis ACS, PE, pericarditis, GERD Critical care attestation.: If time is entered above; I have spent that time in minutes in the direct care of this critically ill patient, excluding procedure time. ED Disposition Clinical Impression: Acute chest pain Disposition: OP ADMIT IP TO THIS HOSP Is pt being admited?: Yes Does the pt Need Aspirin: Yes Condition: Fair Instructions: Chest Pain (ED) Referrals: PRIMARY CARE, [Primary Care Provider] - 3-5 Days Time of Disposition: 22:26 (hospitalist paged (Dr Alvarenga))
[2019-02-13] MEDS ORDERED: NITROGLYCERIN 0.4 MG TAB SUBL SL PRN (23:31)
[2019-02-13] MEDS ORDERED: MORPHINE 2 MG/1 ML INJ IV PRN (23:31)
[2019-02-14 01:49] LABS: Chol/HDL Ratio 5.05 %
[2019-02-14] MEDS ORDERED: ONDANSETRON 4 MG/2 ML INJ IV PRN (02:39)
[2019-02-14] MEDS ORDERED: ACETAMINOPHEN 325 MG TAB PO PRN (02:39)
[2019-02-14 03:51] LABS: Basophils % (Auto) 0.8 % (0.0-1.8); Eosinophils # (Auto) 0.3 K/mm3 (0.0-0.4); Eosinophils % (Auto) 4.7 % (0.0-4.3); Hematocrit 39.1 % (30.3-42.9); Hemoglobin 12.8 gm/dl (10.1-14.3); Lymphocytes # (Auto) 2.4 K/mm3 (1.2-5.4); Lymphocytes % (Auto) 39.2 % (13.4-35.0); Mean Corpuscular HGB Conc 33 % (30-34); Mean Corpuscular Volume 95 fl (79-97); Monocytes # (Auto) 0.5 K/mm3 (0.0-0.8); Monocytes % (Auto) 8.7 % (0.0-7.3); Platelet Count 188 K/mm3 (140-440); Red Blood Count 4.12 M/mm3 (3.65-5.03); Red Cell Distribution Width 15.7 % (13.2-15.2)
[2019-02-14 04:05] LABS: BUN/Creatinine Ratio 13; Blood Urea Nitrogen 9 mg/dL (7-17); Calcium 8.6 mg/dL (8.4-10.2); Hemolysis Index 12
--- NOTE | 2019-02-14 05:29 | History and Physical Report ---
History of Present Illness Date of admission: 02/14/19 03:29 Chief complaint: Chest pain History of present illness: She is a 33-year-old female presenting with a chief complaint chest pain. The patient states she's had a cough and back pain for the past 2 weeks. she felt dizzy developed substernal chest pain described as a pressure with a stabbing in nature. The patient states she's had shortness of breath, nausea/vomiting and diaphoresis with her chest pain. There is no known relieving or exacerbating factor. The patient states she went to fire department where she was found to have an elevated blood pressure and was advised to come to the hospital . The patient states she has a history of factor V Leiden has not been on anticoagulation for approximately one year. She had a stress test in 2018. On a scale of 10 chest pain was about 9/10 initially but has since subsided to about 5/10 since arriving in the emergency room. Past History Past Medical History: hypertension, other (Asthma, history of DVT, history of factor V Leiden deficiency) Past Surgical History: cholecystectomy, Social history: smoking (She smokes about half a pack of cigarette daily) Family history: CAD, hypertension, stroke, other (Asthma and CHF) Medications and Allergies Allergies Allergy/AdvReac Type Severity Reaction Status Date / Time cefaclor [From Ceclor] Allergy Hives Verified 08/08/18 17:58 olanzapine [From Zyprexa] Allergy Swelling Verified 08/08/18 17:58 prednisone Allergy Unknown Verified 08/08/18 17:58 Home Medications Medication Instructions Recorded Confirmed Last Taken Type Aspirin 81 mg PO DAILY 07/05/18 02/14/19 02/13/19 History Butalb/Acetamin/Caff 50-325-40 2 tab PO Q4H PRN #60 tablet 07/06/18 02/14/19 02/13/19 Rx [Fioricet 50-325-40] Olanzapine [Olanzapine Odt] 15 mg PO QHS #30 tab.rapdis 07/06/18 02/14/19 02/13/19 Rx Topiramate [Topamax] 200 mg PO QAM #30 tablet 07/06/18 02/14/19 02/13/19 Rx traZODone [Desyrel] 200 mg PO HS #60 tablet 03/02/14/19 02/13/19 Rx Active Meds: Active Medications Acetaminophen (Tylenol) 650 mg PO Q4H PRN PRN Reason: Pain MILD(1-3)/Fever >100.5/ALMEIDA Aspirin (Ecotrin) 325 mg PO QDAY KRYSTEN Morphine Sulfate (Morphine) 2 mg IV Q5MIN PRN PRN Reason: Chest Pain unrelieved by NTG Last Admin: 02/14/19 05:11 Dose: 2 mg Documented by: Nitroglycerin (Nitrostat) 0.4 mg SL Q5M PRN PRN Reason: Chest Pain Ondansetron HCl (Zofran) 4 mg IV Q8H PRN PRN Reason: Nausea And Vomiting Last Admin: 02/14/19 05:14 Dose: 4 mg Documented by: Sodium Chloride (Sodium Chloride Flush Syringe 10 Ml) 10 ml IV PRN PRN PRN Reason: LINE FLUSH Sodium Chloride (Sodium Chloride Flush Syringe 10 Ml) 10 ml IV BID KRYSTEN Review of Systems Constitutional: sweats Cardiovascular: chest pain Respiratory: shortness of breath Gastrointestinal: nausea, vomiting Exam - Constitutional Vitals: Temp Pulse Resp BP Pulse Ox 97.8 F 79 16 109/55 95 02/13/19 15:14 02/13/19 23:31 02/14/19 05:11 02/13/19 23:31 02/13/19 23:31 General appearance: Present: no acute distress - EENT Eyes: Present: PERRL, EOM intact ENT: clear oral mucosa - Neck Neck: Present: supple, normal ROM - Respiratory Respiratory effort: normal Respiratory: bilateral: CTA - Cardiovascular Rhythm: regular Heart Sounds: Present: S1 & S2 - Extremities Extremities: no ischemia, pulses intact Peripheral Pulses: within normal limits - Abdominal General gastrointestinal: Present: soft, non-tender, non-distended - Integumentary Integumentary: Present: clear, warm, dry - Neurologic Neurologic: CNII-XII intact, moves all extremities Results - Labs CBC & Chem 7: 02/14/19 03:00 02/14/19 03:00 Labs: Abnormal lab results 02/13/19 02/13/19 02/13/19 Range/Units 15:23 15:23 15:23 RDW 15.9 H (13.2-15.2) % Lymph % (Auto) (13.4-35.0) % [place] % (Auto) (0.0-7.3) % Eos % (Auto) (0.0-4.3) % D-Dimer 239.58 H (0-234) ng/mlDDU Carbon Dioxide 21 L (22-30) mmol/L BUN 6 L (7-17) mg/dL Glucose 140 H (65-100) mg/dL Albumin 3.7 L (3.9-5) g/dL Triglycerides (2-149) mg/dL HDL Cholesterol (40-59) mg/dL 02/14/19 02/14/19 Range/Units 00:18 03:00 RDW 15.7 H (13.2-15.2) % Lymph % (Auto) 39.2 H (13.4-35.0) % [place] % (Auto) 8.7 H (0.0-7.3) % Eos % (Auto) 4.7 H (0.0-4.3) % D-Dimer (0-234) ng/mlDDU Carbon Dioxide (22-30) mmol/L BUN (7-17) mg/dL Glucose (65-100) mg/dL Albumin (3.9-5) g/dL Triglycerides 177 H (2-149) mg/dL HDL Cholesterol 35 L (40-59) mg/dL Assessment and Plan - Patient Problems (1) Acute chest pain Current Visit: Yes Status: Acute Plan to address problem: She is admitted and placed on telemetry. We will check serial cardiac enzymes. Patient is placed on daily aspirin, sublingual nitroglycerin as needed and also IV morphine. We will place a consult to cardiology for further evaluation and recommendation in the a.m. (2) Factor V Leiden Current Visit: Yes Status: Acute Plan to address problem: Patient has known history of factor V Leyden deficiency and she has had DVTs in the past. She has not been on any anticoagulation recently.
[2019-02-14 08:51] VITALS: BP 131/66
--- NOTE | 2019-02-14 09:53 | Consultation ---
History of Present Illness Consult date: 02/14/19 Consult reason: chest pain History of present illness: This is a 33-year old woman who presents to the hospital with complaints of chest pain that is reproducible by positional change, coughs and palpation over the chest wall. Cycled troponin are normal. ECG is benign, sinus rhythm. No acute ischemic changes. Cardiology consultation has been requested. Past History Past Medical History: hypertension, other ( history of factor V Leiden deficiency) Past Surgical History: cholecystectomy, Social history: smoking (She smokes about half a pack of cigarette daily) Family history: CAD, hypertension, stroke, other (Asthma and CHF) Medications and Allergies Allergies Allergy/AdvReac Type Severity Reaction Status Date / Time cefaclor [From Ceclor] Allergy Hives Verified 08/08/18 17:58 olanzapine [From Zyprexa] Allergy Swelling Verified 08/08/18 17:58 prednisone Allergy Unknown Verified 08/08/18 17:58 Home Medications Medication Instructions Recorded Confirmed Last Taken Type Aspirin 81 mg PO DAILY 07/05/18 02/14/19 02/13/19 History Butalb/Acetamin/Caff 50-325-40 2 tab PO Q4H PRN #60 tablet 07/06/18 02/14/19 02/13/19 Rx [Fioricet 50-325-40] Olanzapine [Olanzapine Odt] 15 mg PO QHS #30 tab.rapdis 07/06/18 02/14/19 02/13/19 Rx Topiramate [Topamax] 200 mg PO QAM #30 tablet 07/06/18 02/14/19 02/13/19 Rx traZODone [Desyrel] 200 mg PO HS #60 tablet 07/06/18 02/14/19 02/13/19 Rx Ibuprofen [Motrin] 600 mg PO Q8H PRN #20 tablet 02/14/19 Unknown Rx Active Meds: Active Medications Acetaminophen (Tylenol) 650 mg PO Q4H PRN PRN Reason: Pain MILD(1-3)/Fever >100.5/ALMEIDA Aspirin (Ecotrin) 325 mg PO QDAY KRYSTEN Morphine Sulfate (Morphine) 2 mg IV Q5MIN PRN PRN Reason: Chest Pain unrelieved by NTG Last Admin: 02/14/19 05:11 Dose: 2 mg Documented by: Nitroglycerin (Nitrostat) 0.4 mg SL Q5M PRN PRN Reason: Chest Pain Ondansetron HCl (Zofran) 4 mg IV Q8H PRN PRN Reason: Nausea And Vomiting Last Admin: 02/14/19 05:14 Dose: 4 mg Documented by: Sodium Chloride (Sodium Chloride Flush Syringe 10 Ml) 10 ml IV PRN PRN PRN Reason: LINE FLUSH Sodium Chloride (Sodium Chloride Flush Syringe 10 Ml) 10 ml IV BID KRYSTEN Physical Examination Vital Signs Temp Pulse Resp BP Pulse Ox 97.8 F 75 18 141/76 97 02/13/19 15:14 02/13/19 15:14 02/13/19 15:14 02/13/19 15:14 02/13/19 15:14 General appearance: no acute distress, obese HEENT: Positive: PERRL Cardiac: Positive: Reg Rate and Rhythm Lungs: Positive: Normal Breath Sounds Neuro: Positive: Grossly Intact Extremities: Absent: edema Results 02/14/19 03:00 02/14/19 03:00 Cardiac Enzymes 02/13/19 Range/Units 15:23 AST 25 (5-40) units/L Coagulation 02/13/19 Range/Units 15:23 PT 14.3 (12.2-14.9) Sec. INR 1.12 (0.87-1.13) APTT 28.4 (24.2-36.6) Sec. Lipids 02/14/19 Range/Units 00:18 Triglycerides 177 H (2-149) mg/dL Cholesterol 177 (50-199) mg/dL HDL Cholesterol 35 L (40-59) mg/dL Cholesterol/HDL Ratio 5.05 % CBC 02/13/19 02/14/19 Range/Units 15:23 03:00 WBC 6.4 6.2 (4.5-11.0) K/mm3 RBC 4.25 4.12 (3.65-5.03) M/mm3 Hgb 13.4 12.8 (10.1-14.3) gm/dl Hct 40.7 39.1 (30.3-42.9) % Plt Count 200 188 (140-440) K/mm3 Lymph # 2.0 2.4 (1.2-5.4) K/mm3 [place] # 0.4 0.5 (0.0-0.8) K/mm3 Eos # 0.2 0.3 (0.0-0.4) K/mm3 Baso # 0.1 0.0 (0.0-0.1) K/mm3 Comprehensive Metabolic Panel 02/13/19 02/14/19 Range/Units 15:23 03:00 Sodium 138 138 (137-145) mmol/L Potassium 4.7 3.9 (3.6-5.0) mmol/L Chloride 103.1 102.8 (98-107) mmol/L Carbon Dioxide 21 L 24 (22-30) mmol/L BUN 6 L 9 (7-17) mg/dL Creatinine 0.7 0.7 (0.7-1.2) mg/dL Glucose 140 H 93 (65-100) mg/dL Calcium 8.6 8.6 (8.4-10.2) mg/dL AST 25 (5-40) units/L ALT 21 (7-56) units/L Alkaline Phosphatase 82 (35-129) units/L Total Protein 7.2 (6.3-8.2) g/dL Albumin 3.7 L (3.9-5) g/dL Assessment and Plan - Patient Problems (1) Acute chest pain Current Visit: Yes Status: Acute Plan to address problem: Chest pain, musculoskeletal Recommendations: Chest CTA for PE protocol. No cardiac workup is indicated for musculoskeletal type chest pain.
[2019-02-14] MEDS ORDERED: ASPIRIN EC 325 MG TAB PO SCH (10:00)
[2019-02-14] MEDS ORDERED: PANTOPRAZOLE 40 MG TAB PO SCH (10:00)
--- NOTE | 2019-02-14 10:33 | Event Note ---
Date: 02/14/19 33-year-old woman who presented to the hospital with chest pain dizziness. She was seen by cardiology who deemed her chest pain to be musculoskeletal in nature. She is advised to take NSAIDs as needed. No further work-up indicated. Patient discharged in stable condition.
[2019-02-14] MEDS ORDERED: KETOROLAC 30 MG/1 ML INJ IV SCH (14:00)
== END 2019-02-14 13:34 | disposition left against medical advice (07) ==
LOC: ED 15:04 → 4A 02-14 03:29 → INTOOBSV 02-14 03:29
PROVIDERS: ADMIT Internal Medicine Geriatric Medicine; ATTEND Internal Medicine
DX: R07.89 Other chest pain (principal); R11.2 Nausea with vomiting, unspecified; R42 Dizziness and giddiness; R61 Generalized hyperhidrosis; I10 Essential (primary) hypertension; J45.909 Unspecified asthma, uncomplicated; F17.210 Nicotine dependence, cigarettes, uncomplicated; Z86.718 Personal history of other venous thrombosis and embolism; Z90.49 Acquired absence of other specified parts of digestive tract; Z79.82 Long term (current) use of aspirin; Z79.899 Other long term (current) drug therapy; Z88.1 Allergy status to other antibiotic agents; Z88.8 Allergy status to other drugs, medicaments and biological substances
CPT/HCPCS: 36415; 71046; 80048; 80053; 80061; 84484; 84703; 85025; 85379; 85610; 85730; 93005; 93010; 93306; 96374; 96375; 99284; G0378; J2270; J2405; J3010; 96365

== ENCOUNTER 2019-05-15 16:25 | Emergency (ER) | payer SELFPAY ==
--- NOTE | 2019-05-15 17:06 | Event Note ---
ED Screening Note Date of service: 05/15/19 Time: 17:05 ED Screening Note: 33 y o f presents with sob and chest pain x 3 days worsening tofay Hx of DVT in stomach, factor 5 This initial assessment/diagnostic orders/clinical plan/treatment(s) is/are subject to change based on patients health status, clinical progression and re- assessment by fellow clinical providers in the ED. Further treatment and workup at subsequent clinical providers discretion. Patient/guardian urged not to elope from the ED as their condition may be serious if not clinically assessed and managed. Initial orders include: labs,cxr
--- NOTE | 2019-05-15 17:36 | XRay Report ---
CHEST 2 VIEWS INDICATION / CLINICAL INFORMATION: Chest Pain. COMPARISON: 02/13/2019 chest radiograph FINDINGS: SUPPORT DEVICES: None. HEART / MEDIASTINUM: No significant abnormality. LUNGS / PLEURA: No significant pulmonary or pleural abnormality. No pneumothorax. ADDITIONAL FINDINGS: No significant additional findings. IMPRESSION: No acute finding. No significant change. Signer Name: El Vogel MD Signed: 05/15/2019 5:31 PM Workstation Name: [id number]
[2019-05-15] MEDS ORDERED: MORPHINE 4 MG/1 ML INJ IV ONE (18:32)
[2019-05-15] MEDS ORDERED: ONDANSETRON 4 MG/2 ML INJ IV ONE (18:32)
[2019-05-15] MEDS ORDERED: KETOROLAC 30 MG/1 ML INJ IV ONE (18:32)
[2019-05-15 18:58] LABS: Basophils # (Auto) 0.1 K/mm3 (0.0-0.1); Basophils % (Auto) 1.1 % (0.0-1.8); Eosinophils # (Auto) 0.3 K/mm3 (0.0-0.4); Eosinophils % (Auto) 4.5 % (0.0-4.3); Hematocrit 36.8 % (30.3-42.9); Hemoglobin 13.2 gm/dl (10.1-14.3); Lymphocytes # (Auto) 2.1 K/mm3 (1.2-5.4); Lymphocytes % (Auto) 31.5 % (13.4-35.0); Mean Corpuscular HGB Conc 36 % (30-34); Mean Corpuscular Volume 94 fl (79-97); Monocytes # (Auto) 0.3 K/mm3 (0.0-0.8); Monocytes % (Auto) 4.7 % (0.0-7.3); Platelet Count 212 K/mm3 (140-440); Red Blood Count 3.92 M/mm3 (3.65-5.03); Red Cell Distribution Width 17.6 % (13.2-15.2)
[2019-05-15 19:08] LABS: INR 1.04 (0.87-1.13)
--- NOTE | 2019-05-15 19:10 | Emergency Department Report ---
- General Chief Complaint: Upper Respiratory Infection Stated Complaint: CHEST PAIN, SOB, DIZZY,COUGH Time Seen by Provider: 05/15/19 18:23 Source: patient, old records reviewed (Feb 2019 admission for chest pain, echo essentially normal with left ventricle ejection fraction 50-55%. pt signed out ama prior to ordered cta chest) Mode of arrival: Ambulatory Limitations: No Limitations - History of Present Illness Initial Comments: 33-year-old female with a past medical history asthma, factor 5 leiden deficiency, bipolar disorder, schizophrenia, anxiety, DVT 5, hypertension, and smoke or complains of cough 8 days and some left-sided chest pain progressively worsening for the past 6 days. Cough is now productive of green sputum. MAXIMUM TEMPERATURE 99. Patient complaining intermittent wheezing with social shortness of breath and lightheadedness. Patient complaining of left-sided sharp chest pain that feels like "muscles and bones" that radiates to the back. Pain is constant, rated 8/10 in intensity, worse with deep inspiration, movement, and palpation. Patient does have factor V Leiden deficiency with history of abdominal vessel DVT. She supposedly taking aspirin 325 daily but has tamika out and therefore substituting with ibuprofen 800. She is not on anticoagulants nor does she have a filter. She denies history of leg DVT or pulmonary embolism. Her primary care doctor is Dr. 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 Patient has not followed up with her doctors 8 months due to lack of insurance. - Related Data Home Medications Medication Instructions Recorded Confirmed Last Taken Aspirin 81 mg PO DAILY 07/05/18 02/14/19 02/13/19 Previous Rx's Medication Instructions Recorded Last Taken Type Butalb/Acetamin/Caff 50-325-40 2 tab PO Q4H PRN #60 tablet 07/06/18 02/13/19 Rx [Fioricet 50-325-40] Olanzapine [Olanzapine Odt] 15 mg PO QHS #30 tab.rapdis 07/06/18 02/13/19 Rx Topiramate [Topamax] 200 mg PO QAM #30 tablet 07/06/18 02/13/19 Rx traZODone [Desyrel] 200 mg PO HS #60 tablet 07/06/18 02/13/19 Rx Ibuprofen [Motrin] 600 mg PO Q8H PRN #20 tablet 02/14/19 Unknown Rx Pantoprazole [Protonix] 40 mg PO QDAY #60 tablet 02/14/19 Unknown Rx Azithromycin [Zithromax Z-ELOISE] 1 tab PO DAILY 5 Days tab 05/16/19 Unknown Rx Benzonatate [Tessalon Perles] 100 mg PO Q8HR PRN #20 capsule 05/16/19 Unknown Rx HYDROcodone/APAP 5-325 [[place] 1 each PO Q6HR PRN #10 tablet 05/16/19 Unknown Rx 5/325] predniSONE [Deltasone] 40 mg PO QDAY 5 Days tab 05/16/19 Unknown Rx Allergies Allergy/AdvReac Type Severity Reaction Status Date / Time cefaclor [From Ceclor] Allergy Hives Verified 08/08/18 17:58 olanzapine [From Zyprexa] Allergy Swelling Verified 08/08/18 17:58 ED Review of Systems ROS: Stated complaint: CHEST PAIN, SOB, DIZZY,COUGH Other details as noted in HPI Comment: All other systems reviewed and negative ED Past Medical Hx - Past Medical History Previous Medical History?: Yes Hx Hypertension: Yes Hx CVA: Yes (x5) Hx Heart Attack/AMI: No Hx Congestive Heart Failure: No Hx Diabetes: No Hx Deep Vein Thrombosis: Yes Hx Pulmonary Embolism: No Hx Liver Disease: No Hx Renal Disease: No Hx Sickle Cell Disease: No Hx Seizures: No Hx Psychiatric Treatment: Yes (BIPOLAR / SCHIZOPHRENIA / PTSD/ Anxiety) Hx Asthma: Yes Hx COPD: No Hx Tuberculosis: No Hx Dementia: No Hx HIV: No Additional medical history: Factor V Leiden, Leukemia - Surgical History Past Surgical History?: Yes Hx Coronary Stent: No Hx Open Heart Surgery: No Hx Pacemaker: No Hx Internal Defibrillator: No Hx Cholecystectomy: Yes Hx Appendectomy: No Hx Breast Surgery: No Additional Surgical History: X 2. TUBAL LIGATION - Social History Smoking Status: Current Every Day Smoker Substance Use Type: Prescribed - Medications Home Medications: Home Medications Medication Instructions Recorded Confirmed Last Taken Type Aspirin 81 mg PO DAILY 07/05/18 02/14/19 02/13/19 History Butalb/Acetamin/Caff 50-325-40 2 tab PO Q4H PRN #60 tablet 07/06/18 02/14/19 02/13/19 Rx [Fioricet 50-325-40] Olanzapine [Olanzapine Odt] 15 mg PO QHS #30 tab.rapdis 07/06/18 02/14/19 02/13/19 Rx Topiramate [Topamax] 200 mg PO QAM #30 tablet 07/06/18 02/14/19 02/13/19 Rx traZODone [Desyrel] 200 mg PO HS #60 tablet 07/06/18 02/14/19 02/13/19 Rx Ibuprofen [Motrin] 600 mg PO Q8H PRN #20 tablet 02/14/19 Unknown Rx Pantoprazole [Protonix] 40 mg PO QDAY #60 tablet 02/14/19 Unknown Rx Azithromycin [Zithromax Z-ELOISE] 1 tab PO DAILY 5 Days tab 05/16/19 Unknown Rx Benzonatate [Tessalon Perles] 100 mg PO Q8HR PRN #20 capsule 05/16/19 Unknown Rx HYDROcodone/APAP 5-325 [[place] 1 each PO Q6HR PRN #10 tablet 05/16/19 Unknown Rx 5/325] predniSONE [Deltasone] 40 mg PO QDAY 5 Days tab 05/16/19 Unknown Rx ED Physical Exam - General Limitations: No Limitations - Other Other exam information: General: No limitations, patient is alert in no acute distress Head exam: Atraumatic, normocephalic Eyes exam: Normal appearance ENT: Moist mucous membrane Neck exam: Normal inspection, full range of motion Respiratory exam: Clear to auscultation bilateral, no wheezes, rales, crackles, no tachypnea Cardiovascular: Normal rate and rhythm. Reproducible anterior left lower chest wall tenderness extending to the posterior thoracic area Abdomen: Soft, nondistended, and nontender, with normal bowel sounds, no rebound, or guarding, Extremity: No deformity, no calf tenderness or leg edema Back: Normal Inspection Neurologic: Alert, oriented x3, speech clear, no gross motor or sensory deficit Psychiatric: Normal mood, affect Skin: No rash ED Course Vital Signs 05/15/19 05/15/19 05/15/19 16:34 18:26 20:45 Temperature 97.7 F Pulse Rate 82 87 72 Respiratory 18 16 20 Rate Blood Pressure 130/71 138/74 Blood Pressure 111/61 [Left] O2 Sat by Pulse 96 97 97 Oximetry 05/15/19 05/15/19 05/15/19 21:01 21:47 22:00 Temperature Pulse Rate 83 81 77 Respiratory 26 H 18 23 Rate Blood Pressure 138/74 138/74 107/66 Blood Pressure [Left] O2 Sat by Pulse 91 97 92 Oximetry 05/15/19 05/15/19 05/15/19 22:15 22:31 22:45 Temperature Pulse Rate 82 79 Respiratory 30 H 25 H 26 H Rate Blood Pressure 107/66 107/66 107/66 Blood Pressure [Left] O2 Sat by Pulse 91 91 96 Oximetry 05/15/19 23:01 Temperature Pulse Rate 78 Respiratory 16 Rate Blood Pressure 107/66 Blood Pressure [Left] O2 Sat by Pulse 94 Oximetry ED Medical Decision Making - Lab Data Result diagrams: 05/15/19 18:50 05/15/19 20:02 Lab Results 05/15/19 05/15/19 05/15/19 Range/Units 18:50 18:50 18:50 WBC 6.6 (4.5-11.0) K/mm3 RBC 3.92 (3.65-5.03) M/mm3 Hgb 13.2 (10.1-14.3) gm/dl Hct 36.8 (30.3-42.9) % MCV 94 (79-97) fl MCH 34 H (28-32) pg MCHC 36 H (30-34) % RDW 17.6 H (13.2-15.2) % Plt Count 212 (140-440) K/mm3 Lymph % (Auto) 31.5 (13.4-35.0) % Miller % (Auto) 4.7 (0.0-7.3) % Eos % (Auto) 4.5 H (0.0-4.3) % Baso % (Auto) 1.1 (0.0-1.8) % Lymph # 2.1 (1.2-5.4) K/mm3 Miller # 0.3 (0.0-0.8) K/mm3 Eos # 0.3 (0.0-0.4) K/mm3 Baso # 0.1 (0.0-0.1) K/mm3 Seg Neutrophils % 58.2 (40.0-70.0) % Seg Neutrophils # 3.9 (1.8-7.7) K/mm3 PT 13.7 (12.2-14.9) Sec. INR 1.04 (0.87-1.13) Sodium (137-145) mmol/L Potassium (3.6-5.0) mmol/L Chloride (98-107) mmol/L Carbon Dioxide (22-30) mmol/L Anion Gap mmol/L BUN (7-17) mg/dL Creatinine (0.7-1.2) mg/dL Estimated GFR ml/min BUN/Creatinine Ratio % Glucose (65-100) mg/dL Calcium (8.4-10.2) mg/dL Troponin T (0.00-0.029) ng/mL NT-Pro-B Natriuret Pep 28.94 (0-450) pg/mL 05/15/19 05/15/19 Range/Units 20:02 22:52 WBC (4.5-11.0) K/mm3 RBC (3.65-5.03) M/mm3 Hgb (10.1-14.3) gm/dl Hct (30.3-42.9) % MCV (79-97) fl MCH (28-32) pg MCHC (30-34) % RDW (13.2-15.2) % Plt Count (140-440) K/mm3 Lymph % (Auto) (13.4-35.0) % Miller % (Auto) (0.0-7.3) % Eos % (Auto) (0.0-4.3) % Baso % (Auto) (0.0-1.8) % Lymph # (1.2-5.4) K/mm3 Miller # (0.0-0.8) K/mm3 Eos # (0.0-0.4) K/mm3 Baso # (0.0-0.1) K/mm3 Seg Neutrophils % (40.0-70.0) % Seg Neutrophils # (1.8-7.7) K/mm3 PT (12.2-14.9) Sec. INR (0.87-1.13) Sodium 137 (137-145) mmol/L Potassium 4.2 (3.6-5.0) mmol/L Chloride 103.0 (98-107) mmol/L Carbon Dioxide 21 L (22-30) mmol/L Anion Gap 17 mmol/L BUN 8 (7-17) mg/dL Creatinine 0.7 (0.7-1.2) mg/dL Estimated GFR > 60 ml/min BUN/Creatinine Ratio 11 % Glucose 97 (65-100) mg/dL Calcium 8.9 (8.4-10.2) mg/dL Troponin T < 0.010 < 0.010 (0.00-0.029) ng/mL NT-Pro-B Natriuret Pep (0-450) pg/mL - EKG Data -: EKG Interpreted by Me EKG shows normal: sinus rhythm, ST-T waves (no stemi) Rate: normal - Radiology Data Radiology results: report reviewed CHEST 2 VIEWS INDICATION / CLINICAL INFORMATION: Chest Pain. COMPARISON: 02/13/2019 chest radiograph FINDINGS: SUPPORT DEVICES: None. HEART / MEDIASTINUM: No significant abnormality. LUNGS / PLEURA: No significant pulmonary or pleural abnormality. No pneumothorax. ADDITIONAL FINDINGS: No significant additional findings. IMPRESSION: No acute finding. No significant change. CTA chest with contrast INDICATION : cp, sob, cough. TECHNIQUE: Axial imaging performed through the chest, with contrast bolus timing set to maximize opacification of the pulmonary arteries. 3-plane MIP reformatted images were obtained. All CT scans at this location are performed using CT dose reduction for ALARA by means of automated exposure control. 100 mL of intravenous contrast administered. COMPARISON: CTA chest from 10/08/2016 FINDINGS: Bolus: Contrast bolus timing is adequate. PTE: No filling defect is present to suggest PTE. Mediastinum: Heart and great vessels appear normal. No pathologic mediastinal adenopathy. Lungs: Mild streaky right basilar airspace disease likely representing ate lectasis versus scarring. There is also a stable 4 mm nodule in the right lung base measuring 6 mm on image #325 of series #3, previously seen on image 117 of series #2. Upper abdomen: Gallbladder is surgically absent. No acute abnormality in the upper abdomen. Bones: Degenerative changes in the spine with nothing acute. IMPRESSION: 1. Negative for PTE. 2. Minimal scarring versus atelectasis in the right lung base with stable 4 mm nodule which has been stable for roughly 2 1/2 years and likely benign. Otherwise clear lungs. - Medical Decision Making pt improved with ed tx of morphine, toradol, dilaudid, zofran cta neg for Pulm embolism and infiltrate Pain is reproducible to palpation. trop neg x 2 with nsr ekg plan to d/ce pt home with abx, steroids, pain and cough med. pmd f/u rec - Differential Diagnosis pe, mi, otitis, pneumonia, asthma,chest wall strain Critical Care Time: No Critical care attestation.: If time is entered above; I have spent that time in minutes in the direct care of this critically ill patient, excluding procedure time. ED Disposition Clinical Impression: Acute bronchitis, Chest wall pain, Asthma Disposition: TO HOME OR SELFCARE Is pt being admited?: No Does the pt Need Aspirin: No Condition: Stable Instructions: Acute Bronchitis (ED), Asthma (ED) Additional Instructions: Take the medication as prescribed. Follow-up with your doctor or with the doctor/clinic provided. Return if symptoms worsen as indicated by your discharge instructions. Prescriptions: predniSONE [Deltasone] 40 mg PO QDAY 5 Days tab HYDROcodone/APAP 5-325 [[place] 5/325] 1 each PO Q6HR PRN #10 tablet PRN Reason: Pain Benzonatate [Tessalon Perles] 100 mg PO Q8HR PRN #20 capsule PRN Reason: Cough Azithromycin [Zithromax Z-ELOISE] 1 tab PO DAILY 5 Days tab Referrals: PRIMARY CAREMD [Primary Care Provider] - 3-5 Days JOANNA GREEN MD [Staff Physician] - 3-5 Days Time of Disposition: 00:53
[2019-05-15] MEDS ORDERED: SODIUM CHLORIDE 0.9% 1000 ML 1,000 ML IV ONE (19:12)
[2019-05-15 21:03] LABS: BUN/Creatinine Ratio 11; Blood Urea Nitrogen 8 mg/dL (7-17); Calcium 8.9 mg/dL (8.4-10.2); Hemolysis Index 19
--- NOTE | 2019-05-15 22:37 | Cat Scan Report ---
CTA chest with contrast INDICATION : cp, sob, cough. TECHNIQUE: Axial imaging performed through the chest, with contrast bolus timing set to maximize opa cification of the pulmonary arteries. 3-plane MIP reformatted images were obtained. All CT scans at this location are performed using CT dose reduction for ALARA by means of automated exposure control. 100 mL of intravenous contrast administered. COMPARISON: CTA chest from 10/08/2016 FINDINGS: Bolus: Contrast bolus timing is adequate. PTE: No filling defect is present to suggest PTE. Mediastinum: Heart and great vessels appear normal. No pathologic mediastinal adenopathy. Lungs: Mild streaky right basilar airspace disease likely representing atelectasis versus scarring. There is also a stable 4 mm nodule in the right lung base measuring 6 mm on image #325 of series #3, previously seen on image 117 of series #2. Upper abdomen: Gallbladder is surgically absent. No acute abnormality in the upper abdomen. Bones: Degenerative changes in the spine with nothing acute. IMPRESSION: 1. Negative for PTE. 2. Minimal scarring versus atelectasis in the right lung base with stable 4 mm nodule which has been stable for roughly 2 1/2 years and likely benign. Otherwise clear lungs. Signer Name: Mike Jauregui MD Signed: 05/15/2019 10:33 PM Workstation Name: [id number]
[2019-05-15 22:48] VITALS: BP 107/66
[2019-05-15] MEDS ORDERED: HYDROmorphone 1 MG/1 ML INJ IV ONE (22:49)
== END 2019-05-16 01:23 | disposition home or self-care (01) ==
LOC: ED 16:25
DX: J20.9 Acute bronchitis, unspecified (principal); J45.909 Unspecified asthma, uncomplicated; I10 Essential (primary) hypertension; F31.9 Bipolar disorder, unspecified; F20.9 Schizophrenia, unspecified; F17.200 Nicotine dependence, unspecified, uncomplicated; F41.9 Anxiety disorder, unspecified; F43.10 Post-traumatic stress disorder, unspecified; Z86.73 Personal history of transient ischemic attack (TIA), and cerebral infarction without residual deficits; Z88.1 Allergy status to other antibiotic agents; Z98.51 Tubal ligation status
CPT/HCPCS: 36415; 71046; 71275; 80048; 83880; 84484; 85025; 85610; 93005; 93010; 96361; 96374; 99285; J1170; J1885; J2270; J2405; J7030; Q9967

== ENCOUNTER 2019-07-08 18:51 | Emergency (ER) | payer SELFPAY ==
[2019-07-08 19:48] VITALS: BP 119/69
== END 2019-07-08 23:49 | disposition left against medical advice (07) ==
LOC: ED 18:51
DX: R05 Cough (principal); R10.9 Unspecified abdominal pain; M54.9 Dorsalgia, unspecified; Z53.21 Procedure and treatment not carried out due to patient leaving prior to being seen by health care provider

== ENCOUNTER 2021-10-18 18:25 | Emergency (ER) | payer SELFPAY ==
[2021-10-18] MEDS ORDERED: FAMOTIDINE 20 MG/2 ML INJ IV ONE (22:50)
[2021-10-18] MEDS ORDERED: ONDANSETRON 4 MG/2 ML INJ IV ONE (22:50)
[2021-10-18] MEDS ORDERED: MORPHINE 4 MG/1 ML INJ IV ONE (22:50)
--- NOTE | 2021-10-18 23:39 | XRay Report ---
CHEST 2 VIEWS INDICATION: CHEST PAIN, DYSPNEA. COMPARISON: 05/15/2019. FINDINGS: Support devices: None. Heart: Within normal limits. Lungs/Pleura: No acute air space or interstitial disease. No significant pleural effusion. IMPRESSION: No acute findings. Signer Name: Rene Akhtar MD Signed: 10/18/2021 11:35 PM Workstation Name: [id number]
[2021-10-18 23:48] LABS: Alanine Aminotransferase 14 units/L (7-56); Albumin 4.1 g/dL (3.9-5); Blood Urea Nitrogen 7 mg/dL (7-17); Calcium 9.1 mg/dL (8.4-10.2); Hemolysis Index 82
[2021-10-19 00:05] LABS: BUN/Creatinine Ratio 10
[2021-10-19 00:31] LABS: Basophils # (Auto) 0.1 K/mm3 (0.0-0.1); Basophils % (Auto) 0.7 % (0.0-1.8); Eosinophils # (Auto) 0.3 K/mm3 (0.0-0.4); Eosinophils % (Auto) 3.1 % (0.0-4.3); Lymphocytes # (Auto) 2.8 K/mm3 (1.2-5.4); Lymphocytes % (Auto) 32.6 % (13.4-35.0); Mean Corpuscular HGB Conc 33 % (30-34); Mean Corpuscular Volume 93 fl (79-97); Monocytes # (Auto) 0.8 K/mm3 (0.0-0.8); Monocytes % (Auto) 8.8 % (0.0-7.3); Platelet Count 183 K/mm3 (140-440); Red Blood Count 4.61 M/mm3 (3.65-5.03); Red Cell Distribution Width 14.9 % (13.2-15.2)
[2021-10-19] MEDS ORDERED: PROCHLORPERAZINE EDISYLATE 10 MG/2 ML VIAL IV ONE (00:57)
[2021-10-19] MEDS ORDERED: fentaNYL 100 MCG/2 ML INJ IV ONE (00:57)
[2021-10-19 02:10] LABS: Bacteria,Urine 1+ /HPF (Negative); Hyaline Casts,Urine 1 /LPF; Mucus,Urine 1+ /HPF
--- NOTE | 2021-10-19 03:26 | Cat Scan Report ---
CTA CHEST WITH CONTRAST INDICATION / CLINICAL INFORMATION: chest pain r/o PE. TECHNIQUE: Axial CT images were obtained through the chest after injection of IV contrast. 3 plane PR P and/or 3D reconstructions were produced. All CT scans at this location are performed using CT dose reduction for ALARA by means of automated exposure control. COMPARISON: CTA chest 05/15/2019 FINDINGS: PULMONARY ARTERIES: No pulmonary emboli. THORACIC AORTA: No significant abnormality. HEART: No significant abnormality. CORONARY ARTERY CALCIFICATION: None. MEDIASTINUM / ALBAN: No significant abnormality. PLEURA: No pleural effusion. No pneumothorax. LUNGS: Mild underlying mosaic attenuation. Mild peripheral opacity at the upper zones ADDITIONAL FINDINGS: None. UPPER ABDOMEN: No acute findings. SKELETAL STRUCTURES: No significant osseous abnormality. IMPRESSION: 1. No CT evidence for pulmonary embolism. 2. Mosaic attenuation is most commonly seen in the setting of air trapping. 3. Mild peripheral opacity. It is uncertain if this is more focal air trapping or represents atypical infection. No new finding. . Signer Name: Rene Akhtar MD Signed: 10/19/2021 3:22 AM Workstation Name: [id number]
--- NOTE | 2021-10-19 04:11 | Emergency Department Report ---
ED Abdominal Pain HPI - General Chief Complaint: Chest Pain Stated Complaint: CHEST PAIN/LUNG PAIN/CANT BREATHE Source: patient Mode of arrival: Ambulatory Limitations: No Limitations - History of Present Illness Initial Comments: Patient is a 35-year-old female with a history of anxiety, depression, bipolar disorder, schizophrenia, PTSD, asthma, factor V Leyden condition, hypertension, CVA x5, DVT and leukemia who presents to the ED with complaint of acute onset persistent substernal chest and epigastric pain that radiate to the mid posterior thoracic area with nausea for the last 12 hours. Patient states that the pain is constant and worse with any movement. Patient also complains of shortness of breath with movement. Patient denies dizziness, syncope, vo miting, diarrhea, traumatic injury or heavy lifting, cough, fever, chills, sore throat, headache, neck pain, lightheadedness, hematemesis, dysuria, urinary frequency and urgency and hematuria. MD Complaint: abdominal pain (epigastric and substernal chest pain), other (dyspnea, nausea) -: hour(s) (12) Location: epigastric Radiation: epigastric, back (Mid posterior thoracic area), chest (Substernal chest pain) Migration to: no migration Severity: severe Severity scale (0 -10): 8 Quality: stabbing, sharp Consistency: constant Improves With: nothing Worsens With: movement Associated Symptoms: denies other symptoms, nausea, anorexia. denies: vomiting, diarrhea, fever, chills, constipation, dysuria, melena, hematuria, syncope, other - Related Data Home Medications Medication Instructions Recorded Confirmed Last Taken Aspirin 81 mg PO DAILY 07/05/18 02/14/19 02/13/19 Previous Rx's Medication Instructions Recorded Last Taken Type Butalb/Acetamin/Caff 50-325-40 2 tab PO Q4H PRN #60 tablet 07/06/18 02/13/19 Rx [Fioricet 50-325-40] Olanzapine [Olanzapine Odt] 15 mg PO QHS #30 tab.rapdis 07/06/18 02/13/19 Rx Topiramate [Topamax] 200 mg PO QAM #30 tablet 07/06/18 02/13/19 Rx traZODone [Desyrel] 200 mg PO HS #60 tablet 07/06/18 02/13/19 Rx Ibuprofen [Motrin] 600 mg PO Q8H PRN #20 tablet 02/14/19 Unknown Rx Pantoprazole [Protonix] 40 mg PO QDAY #60 tablet 02/14/19 Unknown Rx Azithromycin [Zithromax Z-ELOISE] 1 tab PO DAILY 5 Days tab 05/16/19 Unknown Rx Benzonatate [Tessalon Perles] 100 mg PO Q8HR PRN #20 capsule 05/16/19 Unknown Rx HYDROcodone/APAP 5-325 [Norris 1 each PO Q6HR PRN #10 tablet 05/16/19 Unknown Rx 5/325] predniSONE [Deltasone] 40 mg PO QDAY 5 Days tab 05/16/19 Unknown Rx Famotidine [Pepcid] 20 mg PO BID #60 tablet 10/19/21 Unknown Rx Ibuprofen [Motrin] 800 mg PO Q8HR PRN #30 tablet 10/19/21 Unknown Rx Omeprazole 40 mg PO DAILY #30 cap 10/19/21 Unknown Rx Sulfamethoxazole/Trimethoprim 1 each PO Q12H #20 tab 10/19/21 Unknown Rx [Bactrim DS TAB] methOCARBAMOL [Robaxin TAB] 750 mg PO BID PRN #30 tab 10/19/21 Unknown Rx Allergies Allergy/AdvReac Type Severity Reaction Status Date / Time cefaclor [From Ceclor] Allergy Hives Verified 08/08/18 17:58 olanzapine [From Zyprexa] Allergy Swelling Verified 08/08/18 17:58 ED Review of Systems ROS: Stated complaint: CHEST PAIN/LUNG PAIN/CANT BREATHE Other details as noted in HPI Constitutional: denies: chills, fever Eyes: denies: eye pain, eye discharge, vision change ENT: denies: ear pain, throat pain Respiratory: shortness of breath. denies: cough, wheezing Cardiovascular: chest pain (Substernal chest pain), dyspnea on exertion. denies: palpitations Endocrine: no symptoms reported Gastrointestinal: abdominal pain (Epigastric pain that radiates to the mid posterior thoracic area), nausea. denies: vomiting, diarrhea Genitourinary: denies: urgency, dysuria, frequency, hematuria, discharge, abnormal menses, dyspareunia Musculoskeletal: denies: back pain, joint swelling, arthralgia Skin: denies: rash, lesions Neurological: denies: headache, weakness, paresthesias Psychiatric: denies: anxiety, depression Hematological/Lymphatic: denies: easy bleeding, easy bruising ED Past Medical Hx - Past Medical History Hx Hypertension: Yes Hx CVA: Yes (x5) Hx Heart Attack/AMI: No Hx Congestive Heart Failure: No Hx Diabetes: No Hx Deep Vein Thrombosis: Yes Hx Pulmonary Embolism: No Hx Liver Disease: No Hx Renal Disease: No Hx Sickle Cell Disease: No Hx Seizures: No Hx Psychiatric Treatment: Yes (BIPOLAR / SCHIZOPHRENIA / PTSD/ Anxiety) Hx Asthma: Yes Hx COPD: No Hx Tuberculosis: No Hx Dementia: No Hx HIV: No Additional medical history: Factor V Leiden, Leukemia - Surgical History Hx Coronary Stent: No Hx Open Heart Surgery: No Hx Pacemaker: No Hx Internal Defibrillator: No Hx Cholecystectomy: Yes Hx Appendectomy: No Hx Breast Surgery: No Additional Surgical History: X 2. TUBAL LIGATION - Social History Smoking Status: Current Every Day Smoker Substance Use Type: Prescribed - Medications Home Medications: Home Medications Medication Instructions Recorded Confirmed Last Taken Type Aspirin 81 mg PO DAILY 07/05/18 02/14/19 02/13/19 History Butalb/Acetamin/Caff 50-325-40 2 tab PO Q4H PRN #60 tablet 07/06/18 02/14/19 02/13/19 Rx [Fioricet 50-325-40] Olanzapine [Olanzapine Odt] 15 mg PO QHS #30 tab.rapdis 07/06/18 02/14/19 02/13/19 Rx Topiramate [Topamax] 200 mg PO QAM #30 tablet 07/06/18 02/14/19 02/13/19 Rx traZODone [Desyrel] 200 mg PO HS #60 tablet 07/06/18 02/14/19 02/13/19 Rx Ibuprofen [Motrin] 600 mg PO Q8H PRN #20 tablet 02/14/19 Unknown Rx Pantoprazole [Protonix] 40 mg PO QDAY #60 tablet 02/14/19 Unknown Rx Azithromycin [Zithromax Z-ELOISE] 1 tab PO DAILY 5 Days tab 05/16/19 Unknown Rx Benzonatate [Tessalon Perles] 100 mg PO Q8HR PRN #20 capsule 05/16/19 Unknown Rx HYDROcodone/APAP 5-325 [Norris 1 each PO Q6HR PRN #10 tablet 05/16/19 Unknown Rx 5/325] predniSONE [Deltasone] 40 mg PO QDAY 5 Days tab 05/16/19 Unknown Rx Famotidine [Pepcid] 20 mg PO BID #60 tablet 10/19/21 Unknown Rx Ibuprofen [Motrin] 800 mg PO Q8HR PRN #30 tablet 10/19/21 Unknown Rx Omeprazole 40 mg PO DAILY #30 cap 10/19/21 Unknown Rx Sulfamethoxazole/Trimethoprim 1 each PO Q12H #20 tab 10/19/21 Unknown Rx [Bactrim DS TAB] methOCARBAMOL [Robaxin TAB] 750 mg PO BID PRN #30 tab 10/19/21 Unknown Rx ED Physical Exam - General Limitations: No Limitations General appearance: alert, in no apparent distress - Head Head exam: Present: atraumatic, normocephalic, normal inspection - Eye Eye exam: Present: normal appearance, PERRL, EOMI Pupils: Present: normal accommodation - ENT ENT exam: Present: normal exam, normal orophraynx, mucous membranes moist, TM's normal bilaterally, normal external ear exam - Neck Neck exam: Present: normal inspection, full ROM. Absent: tenderness - Respiratory Respiratory exam: Present: normal lung sounds bilaterally, chest wall tenderness (Palpable reproducible anterior substernal chest tenderness). Absent: respiratory distress, wheezes, rales, rhonchi, stridor, accessory muscle use, decreased breath sounds, prolonged expiratory - Cardiovascular Cardiovascular Exam: Present: regular rate, normal rhythm, normal heart sounds. Absent: systolic murmur, diastolic murmur, rubs, gallop - GI/Abdominal GI/Abdominal exam: Present: soft, tenderness (Palpable epigastric tenderness), normal bowel sounds. Absent: guarding, rebound, hyperactive bowel sounds, hypoactive bowel sounds, organomegaly - Extremities Exam Extremities exam: Present: normal inspection, full ROM, normal capillary refill. Absent: tenderness - Back Exam Back exam: Present: normal inspection, full ROM. Absent: tenderness, CVA tenderness (R), CVA tenderness (L), muscle spasm, paraspinal tenderness, vertebral tenderness - Neurological Exam Neurological exam: Present: alert, oriented X3, CN II-XII intact, normal gait, reflexes normal - Psychiatric Psychiatric exam: Present: normal affect, normal mood, anxious - Skin Skin exam: Present: warm, dry, intact, normal color. Absent: rash ED Course Vital Signs 10/18/21 10/18/21 10/18/21 18:39 22:11 22:15 Temperature 98.4 F 97.9 F Pulse Rate 65 60 60 Respiratory 16 18 Rate Blood Pressure 122/66 Blood Pressure 121/72 122/66 [Left] O2 Sat by Pulse 96 96 Oximetry 10/18/21 10/18/21 10/18/21 22:31 22:45 23:01 Temperature Pulse Rate 60 64 Respiratory 17 12 Rate Blood Pressure 125/70 113/56 122/66 Blood Pressure [Left] O2 Sat by Pulse 95 97 98 Oximetry 10/18/21 10/18/21 10/18/21 23:15 23:31 23:45 Temperature Pulse Rate 62 69 65 Respiratory 25 H 19 26 H Rate Blood Pressure 123/61 113/56 113/56 Blood Pressure [Left] O2 Sat by Pulse 97 98 95 Oximetry 10/19/21 10/19/21 10/19/21 00:01 00:17 00:31 Temperature Pulse Rate 66 Respiratory 23 Rate Blood Pressure 118/68 118/68 118/68 Blood Pressure [Left] O2 Sat by Pulse 95 99 97 Oximetry 10/19/21 10/19/21 10/19/21 00:51 01:01 01:15 Temperature Pulse Rate 56 L 60 63 Respiratory 24 26 H Rate Blood Pressure 118/68 116/62 116/62 Blood Pressure [Left] O2 Sat by Pulse 99 94 93 Oximetry 10/19/21 01:23 Temperature 98.9 F Pulse Rate Respiratory Rate Blood Pressure Blood Pressure [Left] O2 Sat by Pulse Oximetry ED Medical Decision Making - Lab Data Result diagrams: 10/18/21 23:05 10/18/21 23:05 - Radiology Data Radiology results: report reviewed, image reviewed [facility] [address] [place] [address] XRay Report Signed Patient: UGO DOSS MR#: [id number] : 1985 Acct:[id number] Age/Sex: 35 / F ADM Date: 10/18/21 Loc: ED Attending Dr: Ordering Physician: PARVEZ LIZARRAGA Date of Service: 10/18/21 Procedure(s): XR chest routine 2V Accession Number(s): [id number] cc: PARVEZ LIZARRAGA Fluoro Time In Minutes: CHEST 2 VIEWS INDICATION: CHEST PAIN, DYSPNEA. COMPARISON: 05/15/2019. FINDINGS: Support devices: None. Heart: Within normal limits. Lungs/Pleura: No acute air space or interstitial disease. No significant pleural effusion. IMPRESSION: No acute findings. Signer Name: Rene Akhtar MD Signed: 10/18/2021 11:35 PM Workstation Name: [id number] Transcribed By: ES Dictated By: Rene Akhtar MD Electronically Authenticated By: Rene Akhtar MD Signed Date/Time: 10/18/212334 DD/ 33 TD/TT: Print Cancel [facility] [address] [id number] Cat Scan Report Signed Patient: UGO DOSS MR#: [id number] : 1985 Acct:[id number] Age/Sex: 35 / F ADM Date: 10/18/21 Loc: ED Attending Dr: Ordering Physician: PARVEZ LIZARRAGA Date of Service: 10/19/21 Procedure(s): CT angio chest Accession Number(s): [id number] cc: PARVEZ LIZARRAGA CTA CHEST WITH CONTRAST INDICATION / CLINICAL INFORMATION: chest pain r/o PE. TECHNIQUE: Axial CT images were obtained through the chest after injection of IV contrast. 3 plane MIP and/or 3D reconstructions were produced. All CT scans at this location are performed using CT dose reduction for ALARA by means of automated exposure control. COMPARISON: CTA chest 05/15/2019 FINDINGS: PULMONARY ARTERIES: No pulmonary emboli. THORACIC AORTA: No significant abnormality. HEART: No significant abnormality. CORONARY ARTERY CALCIFICATION: None. MEDIASTINUM / ALBAN: No significant abnormality. PLEURA: No pleural effusion. No pneumothorax. LUNGS: Mild underlying mosaic attenuation. Mild peripheral opacity at the upper zones ADDITIONAL FINDINGS: None. UPPER ABDOMEN: No acute findings. SKELETAL STRUCTURES: No significant osseous abnormality. IMPRESSION: 1. No CT evidence for pulmonary embolism. 2. Mosaic attenuation is most commonly seen in the setting of air trapping. 3. Mild peripheral opacity. It is uncertain if this is more focal air trapping or represents atypical infection. No new finding. . Signer Name: Rene Akhtar MD Signed: 10/19/2021 3:22 AM Workstation Name: [id number] Transcribed By: DANIELLE Dictated By: Rene Akhtar MD Electronically Authenticated By: Rene Akhtar MD Signed Date/Time: 10/19/21321 DD/ 030 TD/TT: Print - Medical Decision Making This is a 35-year-old female with a history of anxiety, depression, bipolar disorder, schizophrenia, PTSD, asthma, factor V Leyden condition, hypertension, CVA x5, DVT and leukemia who presents to the ED with complaint of acute onset persistent substernal chest and epigastric pain that radiate to the mid posterior thoracic area with nausea for the last 12 hours. Patient states that the pain is constant and worse with any movement. In the ED, patient is alert and oriented x3 and is not in any distress. Patient is hemodynamically stable. Chest x-ray showed no acute cardiopulmonary abnormalities or pneumonitis. Chest CTA showed no CT evidence of PE. Lab test results were reviewed and all nonactionable except D-dimer level of 446.22. Patient was treated for pain in the ED. On reevaluation, patient's pain is well controlled medication. Patient will discharge home on medications and advised to follow-up with her primary care physician in 5 to 7 days for reevaluation. Patient is advised to return to the ED immediately if symptoms get worse. - Differential Diagnosis PE; gastroenteritis; gastritis; GERD; ACS; pneumonia; anxiety Critical care attestation.: If time is entered above; I have spent that time in minutes in the direct care of this critically ill patient, excluding procedure time. ED Disposition Clinical Impression: Abdominal pain, acute, epigastric, Atypical chest pain, Spasm of thoracic back muscle, Acute urinary tract infection GERD (gastroesophageal reflux disease) Qualifiers: Esophagitis presence: esophagitis presence not specified Qualified Code(s): K21.9 - Gastro-esophageal reflux disease without esophagitis Disposition: HOME / SELF CARE / HOMELESS Is pt being admited?: No Does the pt Need Aspirin: No Condition: Stable Instructions: Muscle Cramps and Spasms, [id number], Heartburn, [id number], Abdominal Pain, Adult, [id number], Nonspecific Chest Pain, Adult, Ncvl-al-[id number], Gastroesophageal Reflux Disease, Adult, [id number] Additional Instructions: All lab test results were reviewed and are all nonactionable. Chest x-ray showed no acute cardiopulmonary abnormalities or pneumonitis. Chest CT angiogram showed no evidence of pulmonary embolism. Therefore take medication as advised, drink plenty of fluids and follow-up with your primary care phys ician in 5 to 7 days for reevaluation or return to the ED immediately if symptoms get worse. Prescriptions: Sulfamethoxazole/Trimethoprim [Bactrim DS TAB] 1 each PO Q12H #20 tab Ibuprofen [Motrin] 800 mg PO Q8HR PRN #30 tablet PRN Reason: Pain , Severe (7-10) Omeprazole 40 mg PO DAILY #30 cap Famotidine [Pepcid] 20 mg PO BID #60 tablet methOCARBAMOL [Robaxin TAB] 750 mg PO BID PRN #30 tab PRN Reason: Muscle Spasm Referrals: [facility] [Provider Group] - 7-10 days Time of Disposition: 04:17 Print Language: LUXEMBOURGISH
[2021-10-19 04:25] LABS: Bilirubin,Urine 1+ (Negative); Color,Urine Yellow (Yellow)
[2021-10-19 04:29] LABS: Blood,Urine Negative (Negative); Ictotest,Urine Negative (Negative); Urobilinogen,Urine 0.2 mg/dL (<2.0)
[2021-10-19 06:02] VITALS: BP 133/88
--- NOTE | 2021-10-20 19:35 | Electrocardiograph Report ---
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
== END 2021-10-19 06:02 | disposition home or self-care (01) ==
LOC: ED 18:25
DX: N39.0 Urinary tract infection, site not specified (principal); K21.9 Gastro-esophageal reflux disease without esophagitis; R07.9 Chest pain, unspecified; M62.830 Muscle spasm of back; R10.13 Epigastric pain; I10 Essential (primary) hypertension; I26.99 Other pulmonary embolism without acute cor pulmonale; Z86.73 Personal history of transient ischemic attack (TIA), and cerebral infarction without residual deficits; J45.909 Unspecified asthma, uncomplicated; F31.9 Bipolar disorder, unspecified; Z90.49 Acquired absence of other specified parts of digestive tract; F17.200 Nicotine dependence, unspecified, uncomplicated; Z91.09 Other allergy status, other than to drugs and biological substances; Z79.899 Other long term (current) drug therapy
CPT/HCPCS: 36415; 71046; 71275; 80053; 81001; 83690; 83880; 84484; 84703; 85025; 85379; 87086; 93005; 96374; 96375; 99284; J0780; J2270; J2405; J3010; J3490; Q9967